=== PATIENT | female | born 1950 | race Caucasian/White ===

== ENCOUNTER → 2018-05-13 07:16 | Outpatient (CLI) | payer OTHER, SELFPAY ==
[2018-05-13 09:05] LABS: White Blood Cell Count 6.4 X10^3/uL (4.5-11.0)
[2018-05-13 09:48] LABS: Alanine Aminotransferase 27 IU/L (9-52); Albumin Globulin Ratio 1.5 (1.0-2.8); Alkaline Phosphatase 66 U/L (38-126); Aspartate Aminotransferase 22 IU/L (14-36); BUN Creatinine Ratio 23.3 (6-22); Bilirubin Total 0.4 mg/dL (0.2-1.3); Bilirubin Unconjugated 0.2 mg/dL (0.0-1.1); Blood Urea Nitrogen 28 mg/dL (7-17); Calcium 9.4 mg/dL (8.4-10.2); Carbon Dioxide 28 mmol/L (22-32); Chloride 97 mmol/L (98-107); Estimated Glomerular Filt Rate 45.1 mL/min (>60); Globulin 2.6 g/dL (1.7-4.1); Glucose 98 mg/dL (80-110); HEMOLYSIS < 15 (0-50); Potassium 4.5 mmol/L (3.4-5.1); Sodium 138 mmol/L (137-145); Total Protein 6.6 g/dL (6.3-8.2)
== END ==
PROVIDERS: PCP Family Medicine; Visit Provider Podiatrist
DX: L60.8 Other nail disorders (principal)
CPT/HCPCS: 36415; 80048; 80076; 85048

== ENCOUNTER → 2018-09-25 10:00 | Outpatient (CLI) | payer OTHER, SELFPAY | PROVIDERS: Family Provider Family Medicine; PCP Family Medicine | DX: Z23 Encounter for immunization (principal) | CPT/HCPCS: 90471; 90662 ==

== ENCOUNTER → 2018-10-15 07:53 | Outpatient (CLI) | payer OTHER, SELFPAY ==
--- NOTE | 2018-10-15 07:56 | DI.RAD.S_ITS ---
PROCEDURE: XR LUMBAR SPINE MIN 4V INDICATIONS: Evaluation TECHNIQUE: 5 views of the lumbar spine were acquired. COMPARISON: [facility], , XR L-SPINE 4-6V, 01/15/2002, 9:22. FINDINGS: Bones: No fracture or focal osseous destruction. Grade 1 anterolisthesis of L4 on L5. Diffuse facet arthropathy. Mild/moderate narrowing of the L4-L5 disc space. Severe narrowing of the L5-S1 disc space. Diffuse facet arthropathy although most prominently at L4-L5 and L5-S1. Soft tissues: Overlying bowel gas pattern is normal. Numerous aortic vascular calcifications. No suspicious soft tissue calcifications. Oblique images: No pars defects. IMPRESSION: L4-L5 L5-S1 disc degeneration and diffuse facet arthropathy. Grade 1 anterolisthesis of L4 on L5. All of these findings appear progressive or new since 01/15/02. Dictated by: Matthieu Mohr M.D. on 10/15/2018 at 10:10 Approved by: Matthieu Mohr M.D. on 10/15/2018 at 10:12
== END ==
PROVIDERS: Family Provider Family Medicine; PCP Family Medicine; Visit Provider Physical Medicine & Rehabilitation
DX: M43.16 Spondylolisthesis, lumbar region (principal); M51.36 Other intervertebral disc degeneration, lumbar region; M51.37 Other intervertebral disc degeneration, lumbosacral region; M47.816 Spondylosis without myelopathy or radiculopathy, lumbar region; M47.817 Spondylosis without myelopathy or radiculopathy, lumbosacral region; M48.061 Spinal stenosis, lumbar region without neurogenic claudication; M48.07 Spinal stenosis, lumbosacral region; M99.89 Other biomechanical lesions of abdomen and other regions
CPT/HCPCS: 72110

== ENCOUNTER 2018-10-16 12:54 | Outpatient (CLI) | payer OTHER, SELFPAY ==
[2018-10-16] VITALS (8 sets, daily range): BP systolic 114–154; BP diastolic 49–74; PULSE 56–67; RESP 16–20; TEMP 36.3; O2SAT 94–96
--- NOTE | 2018-10-16 12:55 | DI.RAD.S_ITS ---
PROCEDURE: PAIN L/S FACET INJ/BLK 1ST REBECA COMPARISON: [facility], XA, PAIN L INTERLAMINAR/CAUDAL INJ, 11/29/2016, 0:00. INDICATIONS: SPONDYLOSIS FINDINGS: Spot fluoroscopic intraoperative views demonstrating placement of spinal needles at the L4-L5 and L5-S1 levels. Appropriate location was confirmed with injection of a small amount of contrast. Dictated by: Matthieu Mohr M.D. on 10/16/2018 at 16:15 Approved by: Matthieu Mohr M.D. on 10/16/2018 at 16:17
[2018-10-16] MEDS: MIDAZOLAM 5 MG/5 ML VIAL IV (14:37)
[2018-10-16] MEDS: BUPIVACAINE 0.5% (PF) VIAL 2 ML INJ (14:47)
[2018-10-16] MEDS: IOPAMIDOL 15 ML VIAL 3 ML INJ (14:47)
[2018-10-16] MEDS: LIDOCAINE 1% 20 ML INJ 10 ML INJ (14:47)
[2018-10-16] MEDS: BETAMETHASONE 30 MG/5 ML MDV 12 MG INJ (14:47)
--- NOTE | 2018-10-16 15:00 | P.PCN_ITS ---
Procedures Date/Time Date of procedure: 10/16/18 Time of procedure: 14:59 General Procedure description: PREOP DIAGNOSIS 1. FACET ARTHROPATHY 2. AXIAL LBP 3. MULTILEVEL DDD POST OP DIAGNOSIS 1. FACET ARTHROPATHY 2. AXIAL LBP 3. MULTILEVEL DDD PROCEDURES 1. FLUORSCOPICALLY GUIDED CONTRAST CONTROLLED FACET JOINT INJECTIONS BILATERAL L4/5, L5/S1 PHYSICIAN: Javier Jj, DO INDICATIONS Dorina is referred by Dr. Tripp for treatment of Axial LBP FINDINGS Multilevel Facet Arthropathy with Clinically significant axial LBP DESCRIPTION OF PROCEDURE Fluoroscopically guided, contrast-controlled bilateral L4/5, L5/S1 facet joint injections. Following denial of allergy and review of potential side effects and complications, including, but not necessarily limited to, infection, allergic reaction, local tissue breakdown, stroke, temporary or permanent nerve injury, paralysis, and possible , the patient indicated that the patient understood and agreed to proceed. An informed consent document was signed by the patient, witnessed by a nurse, and placed in the patient's chart. Additionally, other treatment options including medications, modalities, and physical therapy were reviewed with the patient. After review of previous anaesthesic history and IV conscious sedation the patient was deemed safe to proceed with todays procedure with IV conscious sedation as ASA class II designation. Safety time-out was performed to confirm patient ID, procedure to be performed and site of procedure. IV sedation was accomplished with a combination of 4mg was administered by the RN after DO order , titrated to patient comfort during the course of the procedure while the patient remained responsive to all verbal commands In the prone position, following sterile prep and drape of the lumbar region, the posterior aspect of the L4/5, L5/S1 facet joints were identified fluoroscopically. The skin was anesthetized via a 25-gauge 1.5-inch needle with 1% lidocaine solution into the corresponding facet joints. At this point, a 22-gauge 3.5-inch spinal needle was atraumatically introduced and advanced under fluoroscopic guidance into the corresponding facet joints. Following negative aspiration, injections of approximately 0.2-cc of Isovue 200 confirmed interarticular placement without vascular uptake. The identical procedure was then performed at the L4/5, L5/S1 facet joints on the left. Radiological data, including multiple fluoroscopic views of the lumbosacral spine, reveal a spinal needle at the L4/5, L5/S1 facet joints bilaterally. Subsequent views show flow of contrast material both superiorly and inferiorly within the joint space without vascular or intrathecal uptake. At this point, a total of 0.5 cc including a mixture of 0.25cc Marcaine and 0.25cc betamethasone was injected without complication into each of the corresponding facet joints. The patient tolerated the procedure well without signs or symptoms of complications prior to transfer to the recovery area continued monitoring without incident. The patient was then transferred to the recovery area where they were observed for an appropriate period of time after the injection. The patient reported a VAS score of 7 prior to the procedure and a post- procedure VAS of 0. Total Fluoroscopy Time: 20.3 seconds Total Conscious Sedation Time: 24min POST OP INSTRUCTIONS The patient was provided a Pain Log to continue to record their response to the target-specific procedure prior to follow-up visit with their referring physician. Additionally, specific post-injection care instructions and a contact number to our office were provided if concerns arise regarding possible complications associated with the procedure are suspected. Javier Jj DO Complications: none
--- NOTE | 2018-10-16 15:00 | PC.NURSE ---
pt finished procedure, tolerated well. Able to get up off table with minimal assist. Taken via w/c to pre procedure room where I handed off care to Meka MESSER for continued monitoring.
--- NOTE | 2018-10-16 15:09 | PC.NURSE ---
APPROX 1505 ACCEPTED CARE OF PT IN POST PROC AREA. PT POLLY, A&OX4, VSS.
== END 2018-10-16 15:33 | disposition home or self-care (01) ==
PROVIDERS: Family Provider Family Medicine; PCP Family Medicine; Visit Provider Physical Medicine & Rehabilitation
DX: M47.817 Spondylosis without myelopathy or radiculopathy, lumbosacral region (principal); M47.816 Spondylosis without myelopathy or radiculopathy, lumbar region; M51.37 Other intervertebral disc degeneration, lumbosacral region; M54.5 Low back pain; M43.16 Spondylolisthesis, lumbar region; M51.9 Unspecified thoracic, thoracolumbar and lumbosacral intervertebral disc disorder; M99.89 Other biomechanical lesions of abdomen and other regions
CPT/HCPCS: 64493; 64494; 99152; J0702; J2250

== ENCOUNTER 2019-01-15 06:59 | Day surgery (SDC) | payer OTHER, SELFPAY ==
--- NOTE | 2019-01-11 12:12 | PM.PREOP ---
Pre-operative Note Interval Note History & Physical reviewed/Exam performed by Physician: Yes Changes to H&P: No
--- NOTE | 2019-01-11 12:12 | PM.OP.1 ---
Operative Date/Time/Diagnoses Date of procedure: 01/15/19 Time of procedure: 07:45 Procedure & Clinicians Procedure: Right cataract Preoperative diagnoses: 1. Right nuclear sclerotic and cortical cataract. 2. Diabetes without retinopathy. 3. Asthma. 4. GERD Postoperative diagnoses: 1. Cataract removed by phacoemulsification with placement of posterior chamber intraocular lens. Procedure: Phacoemulsification with posterior chamber intraocular lens implant Surgeon: Elizabeth Lozano MD Complications: None Specimen: None Implant: [id number]+17.5 Blood loss: None Anesthesia: Retrobulbar with monitored standby Description of procedure: Patient presents with a complaint of decreased vision due to cataract which is affecting activities of daily living. The patient wants surgery to improve vision. Fasting glucose is stable prior to the procedure at 133. The patient was taken to the operating room and given IV sedation. A retrobulbar block insert consisting of 6 cc of 2% xylocaine without epinephrine mixed half and half with 0.5% Marcaine with 1 cc of hyaluronidase added is placed between the medial and lateral 1/3 of the inferior orbital rim. Lid akinesia is obtain with 1% xylocaine with epinephrine infiltrated along the lid margin. The eye is manually massaged for 30 sec, prepped using Betadine solution, and draped in the usual sterile fashion. Temporal approach was made, a 1 mm side-port incision was made 90? from the proposed clear corneal incision position. Phenylephrine 1.5% mixed with 1% xylocaine 0.2 cc was placed into the anterior chamber. Viscoat followed by Healon was then placed. A 2.6 mm clear incision with a 2.6 mm blade was placed. A 360 degree capsulorrhexis style capsulotomy was then performed with a cystitome needle on a Healon. Hydrodelineation and hydrodissection were performed. The phacoemulsification unit is introduced, and sculpting notice used to groove the central lens. It is then removed in chopping mode. Epi nucleus is removed with epinuclear mode and irrigation aspiration was used to remove the peripheral cortex. The posterior capsule is polished. The intraocular lens is selected, inspected, power confirmed, and placed in the posterior chamber. The pupil was constricted with Miostat.. The wound was stromally hydrated and tested for leaks, there was none and it was left sutureless. Vigamox 0.1 cc was placed into the anterior chamber. Kenalog 0.2 cc was placed in the superior subconjunctival space. A drop of antibiotic and was placed and the eye was patched and shielded. The patient was stable and returned to the recovery room in excellent condition. Dictated by: Elizabeth Lozano MD Copy to: [facility]
[2019-01-15 07:17] VITALS: BP 125/55; PULSE 62; RESP 16; TEMP 36.1; O2SAT 93; BMI 31.9
[2019-01-15] MEDS: PROPARACAINE 0.5% OPHTH SOL 2 DROPS EYE-OP (07:18)
[2019-01-15] MEDS: CATARACT EYE COMPOUND (10 DROPS/SYRINGE) 3 DROPS EYE-OP (07:37)
--- NOTE | 2019-01-15 08:10 | SUR.OPER ---
Case delay; pre op drops were not available from the pharmacy.
[2019-01-15] MEDS: CARBACHOL 1.5 ML VIAL INJ (08:15)
[2019-01-15] MEDS: LIDOCAINE 1% W/EPI INJ 20 ML INJ (08:15)
[2019-01-15] MEDS: CHONDROIDTIN/SOD HYALURONATE 1.05 ML SYRINGE INTRAOCULA (08:15)
[2019-01-15] MEDS: BALANCED SALT IRRIG SOLN NO.2 15 ML IRR (08:15)
[2019-01-15] MEDS: HYALURONATE SODIUM 10 MG/ML SYRINGE INJ (08:15)
[2019-01-15] MEDS: NEOMYCIN/POLY/DEX OPHTH OINT 1 APPLIC EYE-RIGHT (08:16)
[2019-01-15] MEDS: MOXIFLOXACIN OPHTH DROPS 3 ML BOTTLE 2 DROPS INJ (08:16)
[2019-01-15] MEDS: PHENYLEPHRINE/LIDOCAINE VIAL (OR) 0.2 ML EYE-OP (08:17)
[2019-01-15] MEDS: OFLOXACIN 0.3% OPHTH 5 ML 2 DROPS EYE-RIGHT (08:17)
[2019-01-15] MEDS: BALANCED SALT IRRIG SOLN NO.2 500 ML, EPINEPHrine 1 MG IRR (08:18)
[2019-01-15] MEDS: TRIAMCINOLONE 50 MG/5 ML VIAL INJ (08:18)
[2019-01-15] MEDS: LIDOCAINE 2% 4 ML, BUPIVACAINE 0.5% (PF) 4 ML, HYALURONIDASE 150 UNIT INJ (08:19)
[2019-01-15 08:39] VITALS: BP 120/62; PULSE 53; RESP 16; TEMP 36.3; O2SAT 99
[2019-01-15 08:50] VITALS: BP 119/66; PULSE 55; RESP 18; O2SAT 98
== END 2019-01-15 08:55 | disposition home or self-care (01) ==
LOC: OR 06:59
PROVIDERS: Family Provider Family Medicine; PCP Family Medicine; Visit Provider Ophthalmology
DX: H25.811 Combined forms of age-related cataract, right eye (principal); E11.9 Type 2 diabetes mellitus without complications; J45.909 Unspecified asthma, uncomplicated
CPT/HCPCS: J0171; J2250; J2704; J3301; J3470

== ENCOUNTER → 2019-05-23 11:41 | Outpatient (CLI) | payer OTHER, SELFPAY ==
--- NOTE | 2019-05-23 | DI.MG.S_ITS ---
BILATERAL DIGITAL SCREENING MAMMOGRAM 3D/2D WITH CAD: 05/23/2019 CLINICAL: Routine screening. Comparison is made to exams dated: 02/08/2018 mammogram, 01/19/2017 mammogram, and 08/28/2013 mammogram - [facility]. There are scattered fibroglandular elements in both breasts. Current study was also evaluated with a Computer Aided Detection (CAD) system. No significant masses, calcifications, or other findings are seen in either breast. There has been no significant interval change. IMPRESSION: NEGATIVE There is no mammographic evidence of malignancy. A 1 year screening mammogram is recommended. This exam was interpreted at Station ID: [id number]. NOTE: For mammograms, a report in lay terms will be sent to the patient. Approximately 15% of breast malignancies will not be visualized mammographically. In the management of a palpable breast mass, a negative mammogram must not discourage biopsy of a clinically suspicious lesion. Electronically Signed By: Cathy garvin/gerard:05/23/2019 15:43:01 letter sent: Normal Exam ACR BI-RADS Category 1: Negative [id number]
== END ==
PROVIDERS: PCP Family Medicine; Visit Provider Family Medicine
DX: Z12.31 Encounter for screening mammogram for malignant neoplasm of breast (principal)
CPT/HCPCS: 77063; 77067

== ENCOUNTER → 2019-06-02 06:50 | Outpatient (CLI) | payer OTHER, SELFPAY ==
--- NOTE | 2019-06-02 06:53 | DI.MRI.S_ITS ---
PROCEDURE: MR LUMBAR SPINE WO CON INDICATIONS: Lumbosacral spondylosis TECHNIQUE: Noncontrast sagittal T1 spin echo and T2 fast echo, sagittal STIR, axial T1 and T2 fast spin echo through the lumbar spine. In cases with scoliosis, additional coronal T2 fast spin echo may be performed. COMPARISON: [facility], CR, XR LUMBAR SPINE MIN 4V, 10/15/2018, 8:10. [facility], MR, L-SPINE WITHOUT CONTRAST, 08/29/2016, 8:38. FINDINGS: Image quality: Excellent. Alignment and Curvature: Minimal chronic anterolisthesis of L4 on L5 measuring 6 mm, degenerative in nature secondary to facet arthropathy. There is otherwise normal bony alignment. Bone Marrow: Marrow is of normal overall signal. No acute vertebral body compression fractures. Spinal Cord: Conus medullaris terminates at the L1 level. Visualized cord demonstrates normal signal and size. Paraspinous Soft Tissues: No paravertebral masses. T12-L1: No canal stenosis or foraminal stenosis. L1-L2: No canal stenosis or foraminal stenosis. Mild facet hypertrophy. L2-L3: No canal stenosis or foraminal stenosis. Mild facet hypertrophy. L3-L4: Unchanged findings. Diffuse disc bulge. Prominent facet and ligament hypertrophy. Unchanged moderate canal stenosis. Unchanged moderate bilateral foraminal narrowing, mildly impressing on the L3 nerve root sleeves in the foramina. L4-L5: Unchanged findings. The combination of anterolisthesis of L4 on L5, which on roots the disc, and prominent facet and ligament hypertrophy results in moderate central canal stenosis. There is moderate bilateral foraminal narrowing, indenting the bilateral L4 nerve root sleeves. L5-S1: Unchanged findings. Severe disc height loss. No significant canal stenosis. Facet and ligament hypertrophy resulting in mild to moderate bilateral foraminal bearing. IMPRESSION: 1. Stable findings. 2. Prominent facet ligament hypertrophy at L3-L4 and L4-L5. 3. Stable moderate canal stenosis at L3-L4 and L4-L5. 4. Multilevel foraminal narrowing as described above. Dictated by: Mike Lewis M.D. on 06/02/2019 at 8:58 Approved by: Mike Lewis M.D. on 06/02/2019 at 9:14
== END ==
PROVIDERS: PCP Family Medicine; Visit Provider Physical Medicine & Rehabilitation
DX: M47.817 Spondylosis without myelopathy or radiculopathy, lumbosacral region (principal); M48.061 Spinal stenosis, lumbar region without neurogenic claudication
CPT/HCPCS: 72148

== ENCOUNTER 2019-07-03 08:27 | Outpatient (CLI) | payer OTHER, SELFPAY ==
[2019-07-03] VITALS (8 sets, daily range): BP systolic 88–136; BP diastolic 49–71; PULSE 60–66; RESP 12–16; TEMP 36.4; O2SAT 93–99
--- NOTE | 2019-07-03 08:30 | DI.RAD.S_ITS ---
PROCEDURE: PAIN L/S FACET INJ/BLK 1ST REBECA COMPARISON: [facility], , PAIN L/S FACET INJ/BLK 1ST REBECA, 10/16/2018, 15:45. INDICATIONS: SPONDYLOSIS FINDINGS: Fluoroscopic spot filming was performed to verify placement of spinal needles at the L3, L4, L5 level(s), as labeled on the films. Appropriate location(s) of the needle tip(s) was confirmed by injection of iodinated contrast. Dictated by: Matthieu Mohr M.D. on 07/03/2019 at 10:46 Approved by: Matthieu Mohr M.D. on 07/03/2019 at 10:46
[2019-07-03] MEDS: fentaNYL 100 MCG/2 ML INJ 50 MCG IV (09:47)
[2019-07-03] MEDS: MIDAZOLAM 5 MG/5 ML VIAL IV (09:47)
[2019-07-03] MEDS: LIDOCAINE 1% 20 ML INJ 10 ML INJ (09:50)
[2019-07-03] MEDS: IOPAMIDOL 15 ML VIAL 3 ML INJ (09:50)
[2019-07-03] MEDS: BETAMETHASONE 30 MG/5 ML MDV 12 MG INJ (09:50)
[2019-07-03] MEDS: BUPIVACAINE 0.5% (PF) VIAL 5 ML INJ (09:50)
--- NOTE | 2019-07-03 10:02 | PC.NURSE ---
Pt tolerated procedure well. Able to get off the table with standby assist. Transferred pt via wheelchair to pre procedure room for continued monitoring with Meka MESSER.
--- NOTE | 2019-07-03 10:10 | P.PCN_ITS ---
Procedures Date/Time Date of procedure: 07/03/19 Time of procedure: 10:08 General Procedure description: POST OP DIAGNOSIS 1. FACET ARTHROPATHY PROCEDURES 1. BILATERAL L3, L4 AND L5 MB BLOCKS PHYSICIAN: DO CECILIA Weinstein Dorina is referred by Dr. Tripp for treatment of Bilateral Axial LBP. DESCRIPTION OF PROCEDURE Fluoroscopically guided, contrast-controlled bilateral L3, L4 and L5 medial branch blocks with 0.5cc of 0.5% Marcaine. Following review of allergy and review of potential side effects and complications, including, but not necessarily limited to, infection, allergic reaction, local tissue breakdown, nerve injury, paralysis, stroke and possible , the patient indicated that the patient understood and agreed to proceed. An informed consent document was signed by the patient, witnessed by a nurse, and placed in the patient's chart. After review of previous anaesthesic history and IV conscious sedation the patient was deemed safe to proceed with todays procedure with IV conscious sedation as ASA class II designation. Safety time-out was performed to confirm patient ID, procedure to be performed and site of procedure. IV sedation was accomplished with a combination of 3mg of Versed and 50mcg of Fentanyl was administered by the RN after DO order, titrated to patient comfort during the course of the procedure while the patient remained responsive to all verbal commands In the prone position, following sterile prep and drape of the lumbar region, the right L3, L4 and L5 anatomical location of the medial branch of the dorsal ramus was identified fluoroscopically. Subsequently an anesthetic skin wheal using 1% lidocaine solution was initiated at each of the anatomical spots. Subsequently then a 22-gauge 3.5-inch spinal needle was atraumatically introduced and advanced under fluoroscopic guidance at each of the corresponding sites at the right L3, L4 AND L5 MB. After negative aspiration, 0.2 cc of Isovue 200 was injected, confirming placement without vascular or intrathecal uptake. Subsequently then 0.5 cc of 0.5% Marcaine solution was injected at each of the corresponding sites at the Right L3, L4 and L5 medial branch locations. The identical procedure was replicated on the left. The patient tolerated the procedure well without signs or symptoms of complications. The patient tolerated the procedure well without signs or symptoms of complications prior to transfer to the recovery area continued monitoring without incident. Post-procedure, the patient was monitored initiating provocative activities to measure the amount of relief from block of the facetogenic pain. The patient reported a VAS of 7 prior to the procedure and a post-procedure VAS of 1. It has been a pleasure to assist in the diagnostic and therapeutic care of your patient. Total Fluoroscopy Time: 24.8 seconds Total Conscious Sedation Time: 24min POST OP INSTRUCTIONS The patient was provided with a Pain Log to complete over the next several hours and subsequent days prior to the patient's follow up with the ordering physician. If the patient has wine master relief to the solution applied, then they may be a candidate for medial branch rhizotomy. The patient is aware, was provided, once again, with a Pain Log and will follow up with the referring physician for review and clinical correlation Javier Jj DO Complications: none
--- NOTE | 2019-07-03 10:16 | PC.NURSE ---
ACCEPTED CARE OF PT IN POST PROC AREA. PT IN STABLE CONDITION
== END 2019-07-03 10:28 | disposition home or self-care (01) ==
PROVIDERS: PCP Family Medicine; Visit Provider Physical Medicine & Rehabilitation
DX: M47.817 Spondylosis without myelopathy or radiculopathy, lumbosacral region (principal); M43.16 Spondylolisthesis, lumbar region
CPT/HCPCS: 64493; 64494; 99152; J0702; J2250; J3010

== ENCOUNTER → 2019-09-29 16:31 | Outpatient (CLI) | payer OTHER, SELFPAY | PROVIDERS: PCP Family Medicine | DX: Z23 Encounter for immunization (principal) | CPT/HCPCS: 90471; 90662 ==

== ENCOUNTER 2019-10-14 09:31 | Outpatient (CLI) | payer OTHER, SELFPAY ==
[2019-10-14] VITALS (10 sets, daily range): BP systolic 98–130; BP diastolic 45–70; PULSE 59–68; RESP 16–18; TEMP 36.1; O2SAT 93–98
--- NOTE | 2019-10-14 09:32 | DI.RAD.S_ITS ---
PROCEDURE: PAIN L/S TRANSFORAM INJECT REBECA COMPARISON: None. INDICATIONS: Bilateral L4 and L5 MBB with 2% Lidocaine Fluoroscopic spot filming was performed to verify placement of spinal needles at the L4 and L5 level(s), as labeled on the films. Appropriate location(s) of the needle tip(s) was confirmed by injection of iodinated contrast. Dictated by: Matthieu Mohr M.D. on 10/14/2019 at 12:31 Approved by: Matthieu Mohr M.D. on 10/14/2019 at 12:32
[2019-10-14] MEDS: MIDAZOLAM 5 MG/5 ML VIAL IV (10:47)
[2019-10-14] MEDS: fentaNYL 100 MCG/2 ML INJ 50 MCG IV (10:48)
--- NOTE | 2019-10-14 10:53 | PC.NURSE ---
MD NOTIFIED OF LOW BP, NO NEW ORDERS. PT A&OX4 AND EASILY RESPONSIVE.
[2019-10-14] MEDS: LIDOCAINE 2% INJ SDV 1 ML INJ (10:56)
[2019-10-14] MEDS: LIDOCAINE 1% 20 ML 10 ML INJ (10:56)
[2019-10-14] MEDS: IOPAMIDOL 15 ML VIAL 3 ML INJ (10:57)
--- NOTE | 2019-10-14 10:59 | PC.NURSE ---
ASSISTING PT OFF TABLE AND TRANSPORTING TO POST PROC AREA IN STABLE CONDITION.
--- NOTE | 2019-10-14 11:10 | P.PCN_ITS ---
Procedures Date/Time Date of procedure: 10/14/19 Time of procedure: 11:10 General Procedure description: POST OP DIAGNOSIS 1. FACET ARTHROPATHY PROCEDURES 1. BILATERAL L3, L4 AND L5 MB BLOCKS PHYSICIAN: DO CECILIA Weinstein Dornia is referred by Dr. Tripp for treatment of Bilateral Axial LBP. DESCRIPTION OF PROCEDURE Fluoroscopically guided, contrast-controlled bilateral L4 and L5 medial branch blocks with 0.5cc of 2% Lidocaine Following review of allergy and review of potential side effects and complications, including, but not necessarily limited to, infection, allergic reaction, local tissue breakdown, nerve injury, paralysis, stroke and possible , the patient indicated that the patient understood and agreed to proceed. An informed consent document was signed by the patient, witnessed by a nurse, a nd placed in the patient's chart. After review of previous anaesthesic history and IV conscious sedation the patient was deemed safe to proceed with todays procedure with IV conscious sedation as ASA class II designation. Safety time-out was performed to confirm patient ID, procedure to be performed and site of procedure. IV sedation was accomplished with a combination of 2mg of Versed and 50mcg of Fentantyl was administered by the RN after DO order, titrated to patient comfort during the course of the procedure while the patient remained responsive to all verbal commands In the prone position, following sterile prep and drape of the lumbar region, the right L4 AND L5 anatomical location of the medial branch of the dorsal ramus was identified fluoroscopically. Subsequently an anesthetic skin wheal using 1% lidocaine solution was initiated at each of the anatomical spots. Subsequently then a 22-gauge 3.5-inch spinal needle was atraumatically introduced and advanced under fluoroscopic guidance at each of the corresponding sites at the right L4 AND L5 MB. After negative aspiration, 0.2cc of Isovue 200 was injected, confirming placement without vascular or intrathecal uptake. Franco bsequently then 0.5 cc of 2% lidocaine solution was injected at each of the corresponding sites at the right L4 AND L5 medial branch locations. The identical procedure was replicated on the left. The patient tolerated the procedure well without signs or symptoms of complications. The patient tolerated the procedure well without signs or symptoms of complications prior to transfer to the recovery area continued monitoring without incident. Post-procedure, the patient was monitored initiating provocative activities to measure the amount of relief from block of the facetogenic pain. The patient reported a VAS of 7 prior to the procedure and a post-procedure VAS of 1. It has been a pleasure to assist in the diagnostic and therapeutic care of your patient. Total Fluoroscopy Time: 24.8 seconds Total Conscious Sedation Time: 24min POST OP INSTRUCTIONS The patient was provided with a Pain Log to complete over the next several hours and subsequent days prior to the patient's follow up with the ordering physician. If the patient has fire battalion chief relief to the solution applied, then they may be a candidate for medial branch rhizotomy. The patient is aware, was provided, once again, with a Pain Log and will follow up with the referring physician for review and clinical correlation Javier Jj DO Complications: none
--- NOTE | 2019-10-14 17:12 | PC.NURSE ---
Post procedure note: (Late entry) Patient arrived at 1108 for post procedure monitoring. Hand off report received from Chelita Cedillo RN. VSS and O2 Sat stable on arrival. No complaints of pain. 0/10 pain level to back. at 1115, Patient stated that she was feeling mild chest discomfort 4/10 non radiating and had been experiencing symptoms on and off for a week. Patient stated that her has been hospitalized recently and is worried about him. Dr. Jj informed and assessed patient. O2 2 L/SAWYER HELPER was placed. Chest discomfort resolved without medication or treatment other than Oxygen. No EKG was ordered. Dr. Jj recommended to the patient to follow up with her PCP or go to the ED if symptoms persist after discharge. VSS and O2 SAT WNL on RA at time if discharge without chest discomfort. Back pain level 0/10. Patient discharged and ambulated to the cafeteria to wait for her friend to take her home.
== END 2019-10-14 11:50 | disposition home or self-care (01) ==
LOC: RAD 09:32
PROVIDERS: PCP Family Medicine; Visit Provider Physical Medicine & Rehabilitation
DX: M47.816 Spondylosis without myelopathy or radiculopathy, lumbar region (principal); M54.5 Low back pain
CPT/HCPCS: 64483; 64484; 72020; 99152; J2250; J3010

== ENCOUNTER 2019-10-14 17:28 | Emergency (ER) | payer OTHER, SELFPAY ==
[2019-10-14] VITALS (8 sets, daily range): BP systolic 102–190; BP diastolic 48–95; PULSE 61–68; RESP 14–19; TEMP 36.5; O2SAT 94–97; BMI 30.4
--- NOTE | 2019-10-14 17:42 | DI.RAD.S_ITS ---
PROCEDURE: XR CHEST 1V INDICATIONS: chest pain TECHNIQUE: One view of the chest was acquired. COMPARISON: [facility], , CHEST 2 VIEW, 10/26/2017, 8:30. FINDINGS: Surgical changes and devices: None. Lungs and pleura: Lungs are clear. No pleural effusions or pneumothorax. Mediastinum: Mediastinal contours appear normal. Heart size is normal. Bones and chest wall: No suspicious bony lesions. Overlying soft tissues appear unremarkable. IMPRESSION: No acute pulmonary process. Dictated by: Sherita Allan M.D. on 10/14/2019 at 18:09 Approved by: Sherita Allan M.D. on 10/14/2019 at 18:09
--- NOTE | 2019-10-14 17:51 | PC.NURSE ---
pt c/o chest pain that wakes her up during the night, states she sits up and rubs her chest, pain eventually subsides. pt states pain started about a week ago but was only at night, yesterday had pain during the day and today had pain again during the day and pain went into neck. pt was seen by dr de guzman today for spinal injection, at that time had ekg done, without significant findings.
[2019-10-14 17:55] LABS: Add Manual Diff / Slide Review NO; Basophils Absolute Auto 100 /uL (0-100); Basophils Percent Auto 1.1 % (0-2); Eosinophils Absolute Auto 300 /uL (0-450); Eosinophils Percent Auto 3.7 % (2-4); Hematocrit 38.2 % (36-46); Hemoglobin 12.9 g/dL (12.0-16.0); Lymphocytes Absolute Auto 2500 /uL (1100-4500); Lymphocytes Percent Auto 32.1 % (25-40); Mean Corpuscular HGB Conc 33.8 % (30-36); Mean Corpuscular Hemoglobin 32.1 PG (26-34); Mean Corpuscular Volume 94.9 fL (80-100); Monocytes Absolute Auto 700 /uL (0-900); Monocytes Percent Auto 8.6 % (3-14); Neutrophils Absolute Auto 4200 /uL (1500-7000); Neutrophils Percent Auto 54.5 % (50-75); Platelet Count 317 X10^3/uL (150-400); Red Blood Cell Count 4.02 X10^6/uL (4.0-5.2); Red Cell Distribution Width 13.4 % (11.6-14.8); White Blood Cell Count 7.8 X10^3/uL (4.5-11.0)
[2019-10-14 17:57] LABS: INR 0.9 (0.9-1.3); Prothrombin Time 10.6 SECONDS (10.1-12.7)
[2019-10-14] MEDS: ASPIRIN 81 MG CHEW TAB 324 MG PO (17:57)
[2019-10-14 18:00] LABS: PTT Partial Thromboplastin Tim 34 SECONDS (26.4-36.2)
[2019-10-14 18:01] LABS: Alanine Aminotransferase 15 IU/L (<35); Albumin 4.5 g/dL (3.5-5.0); Albumin Globulin Ratio 1.6 (1.0-2.8); Alkaline Phosphatase 87 U/L (38-126); Aspartate Aminotransferase 32 IU/L (14-36); BUN Creatinine Ratio 21.5 (6-22); Bilirubin Total 0.5 mg/dL (0.2-1.3); Blood Urea Nitrogen 28 mg/dL (7-17); Calcium 9.9 mg/dL (8.4-10.2); Carbon Dioxide 31 mmol/L (22-32); Chloride 96 mmol/L (98-107); Creatine Kinase 150 U/L (30-135); Estimated Glomerular Filt Rate 40.9 mL/min (>60); Globulin 2.9 g/dL (1.7-4.1); Glucose 134 mg/dL (80-110); HEMOLYSIS 24 (0-50); Lipase 101 U/L (23-300); Potassium 3.4 mmol/L (3.4-5.1); Sodium 136 mmol/L (137-145); Total Protein 7.4 g/dL (6.3-8.2)
[2019-10-14 18:16] LABS: CKMB % Relative Index 2.5 % (1.5-5.0); Creatine Kinase MB 3.74 ng/mL (<2.37)
--- NOTE | 2019-10-14 18:23 | ED.CHESTPAIN ---
HPI - Chest Pain <Deyanira Roche, DO - Last Filed: 10/14/19 19:33> General Chief Complaint: Chest Pain Stated Complaint: chest pain Time Seen by Provider: 10/14/19 17:31 Source: patient Mode of arrival: Ambulatory History of Present Illness HPI narrative: The patient is a 69-year-old female with history of hypertension diabetes who presents with chest discomfort ongoing for about 1 week. She typically notices it at night time seems to wake her up at night. Last night it woke her up she took Maalox which did not seem to really help. Today she noticed it while driving it is nonradiating, she denies any shortness of breath with exertion. She says she had another episode this afternoon that radiated up to her jaw so she came to the emergency department for further evaluation. MD complaint: chest pain Duration: now resolved Onset: during rest Pain location: substernal Quality: aching Relieving factors: nothing Related Data Home Medications Medication Instructions Recorded Confirmed cinnamon bark 500 mg capsule 500 mg PO DAILY cap 08/12/18 10/14/19 magnesium oxide 400 mg (241.3 mg 400 mg PO DAILY tab 08/12/18 10/14/19 magnesium) tablet Ca [id number] thistle 1 cap PO DAILY cap 04/17/19 10/14/19 chlorthalidone 25 mg PO DAILY 10/14/19 10/14/19 metformin 1,000 mg PO BID 10/14/19 10/14/19 omeprazole 20 mg PO DAILY 10/14/19 10/14/19 sertraline [Zoloft] 50 mg PO DAILY 10/14/19 10/14/19 Previous Rx's Medication Instructions Recorded Test Strips - Freestyle 0 item SEE INSTRUCTIONS #2 07/20/17 losartan 50 mg tablet 50 mg PO BID #60 tab 10/14/18 metoprolol succinate 50 mg 50 mg PO BID #180 tab 02/25/19 tablet,extended release 24 hr nifedipine 10 mg capsule 10 mg PO DAILY #30 cap 07/10/19 glipizide 5 mg tablet, extended 5 mg PO DAILY #90 tab 08/18/19 release 24 hr gabapentin 600 mg tablet 600 mg PO TID #90 tab 09/15/19 Allergies Allergy/AdvReac Type Severity Reaction Status Date / Time hexachlorophene Allergy Mild SWELLING Verified 10/14/19 17:40 [HEXACHLOROPHENE] AT SITE codeine [CODEINE] AdvReac Mild N/V Verified 10/14/19 17:40 hydrochlorothiazide AdvReac Mild CRAMPS Verified 10/14/19 17:40 [HYDROCHLOROTHIAZIDE] Review of Systems <Deyanira Roche DO - Last Filed: 10/14/19 19:33> Review of Systems Narrative: GENERAL: Denies chills, fatigue, malaise, fever, sweats, travel HEENT: Denies sinus pain, ear pain, sore throat, difficulty swallowing, neck pain RESPIRATORY: Denies dyspnea, cough, wheezing, hemoptysis, sputum. CARDIOVASCULAR: See HPI GASTROINTESTINAL: Denies nausea, vomiting, abdominal pain, diarrhea, constipation, melena. : Denies dysuria, frequency, incontinence, hematuria, urinary retention, flank pain. MUSCULOSKELETAL: Denies weakness, joint pain, or bony pain SKIN: No rash, no erythema, no pruritus NEUROLOGIC: Denies weakness, dizziness, headache, numbness, change in speech, confusion PSYCHIATRIC: No concerning psychosocial issues. 12 point review of systems is negative except for those stated above and HPI Patient History <Deyanira Roche DO - Last Filed: 10/14/19 19:33> Family History Father Stroke Mother Lung cancer Social History marital status: household members: spouse Smoking Status: Never smoker alcohol intake: current substance use type: does not use Exam <DO Sabrina Gibson Last Filed: 10/14/19 19:33> Initial Vital Signs Initial Vital Signs: Vital Signs Temperature 97.7 F 10/14/19 17:40 Pulse Rate 68 10/14/19 17:40 Respiratory Rate 16 10/14/19 17:40 Blood Pressure 165/95 H 10/14/19 17:40 Pulse Oximetry 96 10/14/19 17:40 GENERAL: Well-appearing, well-nourished and in no acute distress. HEENT: Head atraumatic,EOMI, pupils reactive, face symmetric, moist mucous membranes CARDIOVASCULAR: Regular rate and rhythm without murmurs, rubs or gallops. RESPIRATORY: Breath sounds equal bilaterally, no wheezes rales or rhonchi. ABDOMEN: Soft, nontender. Normoactive bowel sounds all 4 quadrants. No guarding or rebound. : No CVA tenderness EXTREMITIES: Normal range of motion, no clubbing or edema. Neurovascularly intact NEUROLOGICAL: Alert and oriented x4.Normal gait and speech. SKIN: Warm, dry, no laceration, no petechiae, no rashes or lesions. <Lacie Diamond DO - Last Filed: 10/15/19 04:24> Initial Vital Signs Initial Vital Signs: Vital Signs Temperature 97.7 F 10/14/19 17:40 Pulse Rate 68 10/14/19 17:40 Respiratory Rate 16 10/14/19 17:40 Blood Pressure 165/95 H 10/14/19 17:40 Pulse Oximetry 96 10/14/19 17:40 Course <Deyanira Roche DO - Last Filed: 10/14/19 19:33> Orders Ordered: Discontinued Medications Aspirin (Aspirin Chew) 324 mg PO NOW ONE Stop: 10/14/19 17:54 Last Admin: 10/14/19 17:57 Dose: 324 mg Documented by: SCANAPO Heparin Sodium (Porcine) (Heparin) 5,000 unit IV NOW ONE Stop: 10/14/19 18:42 Last Admin: 10/14/19 18:49 Dose: 5,000 unit Documented by: SCANAPO Heparin Sodium/Dextrose (Heparin Drip) 25,000 unit in 500 mls @ 20 mls/hr IV CONT EMILIA; Protocol Last Titration: 10/14/19 20:30 Dose: 1,000 units/hr, 20 mls/hr Documented by: Admin: 10/14/19 18:49 Dose: 1,000 units/hr, 20 mls/hr Documented by: SCANAPO Nitroglycerin (Nitrostat) 0.4 mg SL NOW ONE Stop: 10/14/19 17:54 Last Admin: 10/14/19 17:58 Dose: Not Given Documented by: SCANAPO Consultations Consultation #1: Dr. Patel, hospitalist at [facility] has been updated patient's symptoms test results agrees with transfer. Vital Signs Vital signs: Vital Signs - 8 hr 10/14/19 20:20 Pulse Rate 65 Respiratory Rate 19 Blood Pressure [Right Arm] 102/48 L Pulse Oximetry 94 <Lacie Diamond DO - Last Filed: 10/15/19 04:24> Orders Ordered: Discontinued Medications Aspirin (Aspirin Chew) 324 mg PO NOW ONE Stop: 10/14/19 17:54 Last Admin: 10/14/19 17:57 Dose: 324 mg Documented by: ALVARO Heparin Sodium (Porcine) (Heparin) 5,000 unit IV NOW ONE Stop: 10/14/19 18:42 Last Admin: 10/14/19 18:49 Dose: 5,000 unit Documented by: ALVARO Heparin Sodium/Dextrose (Heparin Drip) 25,000 unit in 500 mls @ 20 mls/hr IV CONT EMILIA; Protocol Last Titration: 10/14/19 20:30 Dose: 1,000 units/hr, 20 mls/hr Documented by: Admin: 10/14/19 18:49 Dose: 1,000 units/hr, 20 mls/hr Documented by: ALVARO Nitroglycerin (Nitrostat) 0.4 mg SL NOW ONE Stop: 10/14/19 17:54 Last Admin: 10/14/19 17:58 Dose: Not Given Documented by: ALVARO Vital Signs Vital signs: Vital Signs - 8 hr 10/14/19 20:20 Pulse Rate 65 Respiratory Rate 19 Blood Pressure [Right Arm] 102/48 L Pulse Oximetry 94 MDM - Chest Pain <Deyanira Roche, DO - Last Filed: 10/14/19 19:33> Lab Data Attestation: I reviewed the patient's lab results. Result diagrams: 10/14/19 17:38 10/14/19 17:38 Labs: Lab Results 10/14/19 10/14/19 10/14/19 Range/Units 17:38 17:38 17:38 WBC 7.8 (4.5-11.0) X10^3/uL RBC 4.02 (4.0-5.2) X10^6/uL Hgb 12.9 (12.0-16.0) g/dL Hct 38.2 (36-46) % MCV 94.9 (80-100) fL MCH 32.1 (26-34) PG MCHC 33.8 (30-36) % RDW 13.4 (11.6-14.8) % Plt Count 317 (150-400) X10^3/uL Neut % (Auto) 54.5 (50-75) % Lymph % (Auto) 32.1 (25-40) % White % (Auto) 8.6 (3-14) % Eos % (Auto) 3.7 (2-4) % Baso % (Auto) 1.1 (0-2) % Neut # (Auto) 4200 (7836-2631) /uL Lymph # (Auto) 2500 (8492-6164) /uL White # (Auto) 700 (0-900) /uL Eos # (Auto) 300 (0-450) /uL Baso # (Auto) 100 (0-100) /uL PT 10.6 (10.1-12.7) SECONDS INR 0.9 (0.9-1.3) APTT 34 (26.4-36.2) SECONDS Sodium 136 L (137-145) mmol/L Potassium 3.4 (3.4-5.1) mmol/L Chloride 96 L (98-107) mmol/L Carbon Dioxide 31 (22-32) mmol/L BUN 28 H (7-17) mg/dL Creatinine 1.30 H (0.52-1.04) mg/dL Estimated GFR 40.9 L (>60) mL/min BUN/Creatinine Ratio 21.5 (6-22) Glucose 134 H (80-110) mg/dL Calcium 9.9 (8.4-10.2) mg/dL Total Bilirubin 0.5 (0.2-1.3) mg/dL AST 32 (14-36) IU/L ALT 15 (<35) IU/L Alkaline Phosphatase 87 (38-126) U/L Total Creatine Kinase 150 H (30-135) U/L CK-MB (CK-2) 3.74 H (<2.37) ng/mL CK-MB (CK-2) Rel Index 2.5 (1.5-5.0) % Troponin I 1.360 H* (0.01-0.034) ng/mL Total Protein 7.4 (6.3-8.2) g/dL Albumin 4.5 (3.5-5.0) g/dL Globulin 2.9 (1.7-4.1) g/dL Albumin/Globulin Ratio 1.6 (1.0-2.8) Lipase 101 (23-300) U/L Imaging Data Chest x-ray: Radiologist's impression: PROCEDURE: XR CHEST 1V INDICATIONS: chest pain TECHNIQUE: One view of the chest was acquired. COMPARISON: [facility], , CHEST 2 VIEW, 10/26/2017, 8:30. FINDINGS: Surgical changes and devices: None. Lungs and pleura: Lungs are clear. No pleural effusions or pneumothorax. Mediastinum: Mediastinal contours appear normal. Heart size is normal. Bones and chest wall: No suspicious bony lesions. Overlying soft tissues appear unremarkable. IMPRESSION: No acute pulmonary process. Dictated by: Sherita Allan M.D. on 10/14/2019 at 18:09 ECG Data Attestation: I personally reviewed and interpreted this ECG as follows: Prior ECG tracings: available for review Interpretation: Normal sinus rhythm rate 61 p.r. interval 201 QRS [address] changes no T-wave inversions similar to previous EKG MDM Narrative Medical decision making narrative: The patient is currently chest pain free no EKG changes however troponin is positive 1.3 cutoff is 0.12. Patient being transferred to higher level of care for NSTEMI no cardiology available at this hospital. <Lacie Diamond DO - Last Filed: 10/15/19 04:24> Lab Data Labs: Lab Results 10/14/19 10/14/19 10/14/19 Range/Units 17:38 17:38 17:38 WBC 7.8 (4.5-11.0) X10^3/uL RBC 4.02 (4.0-5.2) X10^6/uL Hgb 12.9 (12.0-16.0) g/dL Hct 38.2 (36-46) % MCV 94.9 (80-100) fL MCH 32.1 (26-34) PG MCHC 33.8 (30-36) % RDW 13.4 (11.6-14.8) % Plt Count 317 (150-400) X10^3/uL Neut % (Auto) 54.5 (50-75) % Lymph % (Auto) 32.1 (25-40) % White % (Auto) 8.6 (3-14) % Eos % (Auto) 3.7 (2-4) % Baso % (Auto) 1.1 (0-2) % Neut # (Auto) 4200 (6811-0520) /uL Lymph # (Auto) 2500 (4312-8588) /uL White # (Auto) 700 (0-900) /uL Eos # (Auto) 300 (0-450) /uL Baso # (Auto) 100 (0-100) /uL PT 10.6 (10.1-12.7) SECONDS INR 0.9 (0.9-1.3) APTT 34 (26.4-36.2) SECONDS Sodium 136 L (137-145) mmol/L Potassium 3.4 (3.4-5.1) mmol/L Chloride 96 L (98-107) mmol/L Carbon Dioxide 31 (22-32) mmol/L BUN 28 H (7-17) mg/dL Creatinine 1.30 H (0.52-1.04) mg/dL Estimated GFR 40.9 L (>60) mL/min BUN/Creatinine Ratio 21.5 (6-22) Glucose 134 H (80-110) mg/dL Calcium 9.9 (8.4-10.2) mg/dL Total Bilirubin 0.5 (0.2-1.3) mg/dL AST 32 (14-36) IU/L ALT 15 (<35) IU/L Alkaline Phosphatase 87 (38-126) U/L Total Creatine Kinase 150 H (30-135) U/L CK-MB (CK-2) 3.74 H (<2.37) ng/mL CK-MB (CK-2) Rel Index 2.5 (1.5-5.0) % Troponin I 1.360 H* (0.01-0.034) ng/mL Total Protein 7.4 (6.3-8.2) g/dL Albumin 4.5 (3.5-5.0) g/dL Globulin 2.9 (1.7-4.1) g/dL Albumin/Globulin Ratio 1.6 (1.0-2.8) Lipase 101 (23-300) U/L Critical Care Time <Deyanira Roche, - Last Filed: 10/14/19 19:33> Critical Care Time Critical Care Time: Yes Total Critical Care Time: 30 Attestation: The high probability of a clinically significant, sudden or life threatening deterioration of the cardiovascular system(s) required my full and direct attention, intervention and personal management. The aggregate critical care time was 30 minutes. This time is in addition to time spent performing reported procedures but includes the following: x Data Review and interpretation x Patient assessment and monitoring of vital signs x Documentation x Medication orders and management Discharge Plan Departure Patient Disposition: [facility] Clinical Impression: Acute non-ST elevation myocardial infarction (NSTEMI) Discharge Date/Time: 10/14/19 20:33 Prescriptions: No Action Liver-Kidney Cleanser capsule 1 cap PO DAILY RF: 0 Test Strips - Freestyle 0 item SEE INSTRUCTIONS Qty: 2 RF: 1 losartan [Cozaar] 50 mg tablet 50 mg PO BID Qty: 60 RF: 11 metoprolol succinate [Toprol XL] 50 mg tablet extended release 24 hr 50 mg PO BID Qty: 180 RF: 3 nifedipine 10 mg capsule 10 mg PO DAILY Qty: 30 RF: 11 glipizide 5 mg tablet extended release 24hr 5 mg PO DAILY Qty: 90 RF: 3 magnesium oxide 400 mg tablet 400 mg PO DAILY RF: 0 cinnamon bark [Cinnamon] 500 mg capsule 500 mg PO DAILY RF: 0 metformin 1,000 mg tablet 1,000 mg PO BID RF: 0 chlorthalidone 25 mg tablet 25 mg PO DAILY RF: 0 omeprazole 20 MG capsule,delayed release(DR/EC) 20 mg PO DAILY RF: 0 sertraline [Zoloft] 50 mg tablet 50 mg PO DAILY RF: 0 gabapentin 600 mg tablet 600 mg PO TID Qty: 90 RF: 0 Referrals: Nahid Tripp MD [Primary Care Provider] -
[2019-10-14] MEDS: HEPARIN 5,000 UNIT/ML VIAL 5000 UNIT IV (18:49)
[2019-10-14] MEDS: HEPARIN DRIP 25,000 UNIT/500 ML IV.SOLN 20 UNIT IV (18:49)
== END 2019-10-14 20:33 | disposition short-term general hospital (02) ==
PROVIDERS: Emergency Provider Emergency Medicine; Family Provider Family Medicine; PCP Family Medicine
DX: I21.4 Non-ST elevation (NSTEMI) myocardial infarction (principal); I10 Essential (primary) hypertension; E11.9 Type 2 diabetes mellitus without complications
CPT/HCPCS: 36415; 71045; 80053; 82550; 82553; 83690; 84484; 85025; 85610; 85730; 93005; 96365; 96366; 96375; 99284; 99291; J1644

== ENCOUNTER 2019-10-17 23:56 | Emergency (ER) | payer OTHER, SELFPAY ==
[2019-10-18] VITALS (12 sets, daily range): BP systolic 90–149; BP diastolic 38–123; PULSE 55–83; RESP 12–17; TEMP 37.1; O2SAT 14–100; BMI 31.6
--- NOTE | 2019-10-18 00:06 | DI.CT.S_ITS ---
PROCEDURE: CT KIDNEY URETER BLADDER (KUB) INDICATIONS: severe Right flank pain TECHNIQUE: Noncontrast 5 mm thick sections acquired from the diaphragms to the symphysis. 5 mm thick coronal and sagittal reformats were then performed. For radiation dose reduction, the following was used: automated exposure control, adjustment of mA and/or kV according to patient size. COMPARISON: Located Within [facility], CR, XR CHEST 1V, 10/14/2019, 17:51. FINDINGS: Image quality: Excellent. Lung bases: Lung bases are clear. Heart size is normal. Coronary artery calcifications are seen. Urinary system: Both kidneys are normal in size. No kidney stones. No hydronephrosis or perinephric fat stranding. Both ureters appear non-dilated throughout their expected courses. Bladder wall thickness is normal; no calcified bladder stones. Other solid organs: Liver is normal in size. Gallbladder is largely collapsed at the time of this study. Pancreas is normal in contours. Spleen is normal in size. No adrenal nodules. Peritoneum and bowel: Unenhanced bowel loops demonstrate normal wall thickness and caliber. No free fluid or air. Diverticulosis is seen, without findings of active diverticulitis. Nodes and vessels: No retroperitoneal or mesenteric adenopathy by size criteria. Aorta and inferior vena cava are normal in caliber. Atherosclerotic calcification is noted. Abdominal wall: A mild periumbilical hernia is seen, containing fat. Pelvis: Inflammatory change can be seen involving the right common femoral artery, which continues up through the external iliac artery. Surrounding fatty stranding can be seen. No significant associated hemorrhage is seen. No loculated abscess can be seen. No free pelvic fluid. No inguinal hernias or adenopathy. This patient is status post hysterectomy. No adnexal masses are seen. Bones: No suspicious bony lesions. No vertebral body compression fractures. Mild levoconvex scoliotic curvature is noted. Degenerative changes are seen, which are most prominent involving the L5-S1 level. Grade 1 anterolisthesis is seen at L4-L5, without associated pars defects. IMPRESSION: Inflammatory change seen involving the right common iliac artery and the right external iliac artery. No significant surrounding hemorrhage can be seen. Differential diagnosis includes infection and recent instrumentation. Incidental note is made of: Coronary artery calcification Fat-containing periumbilical hernia Diverticulosis is seen, without findings of active diverticulitis. Hysterectomy Levoconvex scoliotic curvature Grade 1 L4-L5 anterolisthesis Focal L5-S1 degenerative change Note: No significant discrepancy from the preliminary report. Dictated by: Cecil Mike M.D. on 10/18/2019 at 8:54 Approved by: Cecil Mike M.D. on 10/18/2019 at 9:01
[2019-10-18 00:17] LABS: Add Manual Diff / Slide Review NO; Basophils Absolute Auto 100 /uL (0-100); Basophils Percent Auto 0.8 % (0-2); Eosinophils Absolute Auto 200 /uL (0-450); Eosinophils Percent Auto 1.3 % (2-4); Hematocrit 36.6 % (36-46); Hemoglobin 12.5 g/dL (12.0-16.0); Lymphocytes Absolute Auto 2800 /uL (1100-4500); Lymphocytes Percent Auto 21.1 % (25-40); Mean Corpuscular HGB Conc 34.2 % (30-36); Mean Corpuscular Hemoglobin 32.6 PG (26-34); Mean Corpuscular Volume 95.4 fL (80-100); Monocytes Absolute Auto 1300 /uL (0-900); Neutrophils Absolute Auto 8900 /uL (1500-7000); Neutrophils Percent Auto 66.8 % (50-75); Platelet Count 276 X10^3/uL (150-400); Red Blood Cell Count 3.83 X10^6/uL (4.0-5.2); Red Cell Distribution Width 13.3 % (11.6-14.8); White Blood Cell Count 13.3 X10^3/uL (4.5-11.0)
[2019-10-18] MEDS: SODIUM CHLORIDE 0.9% 500 ML 1000 ML IV (00:18)
[2019-10-18] MEDS: KETOROLAC 60 MG/2 ML VIAL 15 MG IV (00:18)
--- NOTE | 2019-10-18 00:24 | ED_ITS ---
HPI - Back Pain/Injury General Chief Complaint: Back Pain/Injury Stated Complaint: Right abdominal pain, post [place] Time Seen by Provider: 10/18/19 00:00 Source: patient Mode of arrival: Ambulatory Limitations: no limitations History of Present Illness HPI Narrative: 69-year-old female nonsmoker with cardiac history including a very recent heart catheterization with stent placement, in fact she was just discharged yesterday. She presents with severe, sudden onset right flank pain that radiates around her side. At times it seems to be made worse with motion and palpation at other times becomes very significantly worse with an apparent mind of its own. She denies any fever or chills. She denies dysuria, frequency or urgency. She denies obvious hematuria. She denies nausea, vomiting or diarrhea nor any cardiac equivalent such as chest pain, shortness of breath nor dizziness, weakness or lightheadedness. She has no history of kidney stones. MD Complaint: back pain Onset (ago): hour(s) Duration: intermittent Similar Symptoms Previously: No Location: right flank and right lower back Severity: severe Quality: sharp Radiation: flank Relieving factors: immobilization Exacerbating factors: movement Associated symptoms: denies other symptoms Related Data Home Medications Medication Instructions Recorded Confirmed cinnamon bark 500 mg capsule 500 mg PO DAILY cap 08/12/18 10/14/19 magnesium oxide 400 mg (241.3 mg 400 mg PO DAILY tab 08/12/18 10/14/19 magnesium) tablet Ca [id number] thistle 1 cap PO DAILY cap 04/17/19 10/14/19 chlorthalidone 25 mg PO DAILY 10/14/19 10/14/19 metformin 1,000 mg PO BID 10/14/19 10/14/19 omeprazole 20 mg PO DAILY 10/14/19 10/14/19 sertraline [Zoloft] 50 mg PO DAILY 10/14/19 10/14/19 Previous Rx's Medication Instructions Recorded Test Strips - Freestyle 0 item SEE INSTRUCTIONS #2 07/20/17 losartan 50 mg tablet 50 mg PO BID #60 tab 10/14/18 metoprolol succinate 50 mg 50 mg PO BID #180 tab 02/25/19 tablet,extended release 24 hr nifedipine 10 mg capsule 10 mg PO DAILY #30 cap 07/10/19 glipizide 5 mg tablet, extended 5 mg PO DAILY #90 tab 08/18/19 release 24 hr gabapentin 600 mg tablet 600 mg PO TID #90 tab 09/15/19 Allergies Allergy/AdvReac Type Severity Reaction Status Date / Time hexachlorophene Allergy Mild SWELLING Verified 10/18/19 00:06 [HEXACHLOROPHENE] AT SITE codeine [CODEINE] AdvReac Mild N/V Verified 10/18/19 00:06 hydrochlorothiazide AdvReac Mild CRAMPS Verified 10/18/19 00:06 [HYDROCHLOROTHIAZIDE] Review of Systems Constitutional Constitutional: Denies chills, Denies fatigue, Denies fever(s), Denies frequent falls, Denies lethargy and Denies weakness Eyes Eyes: Denies change in vision, Denies eye discharge, Denies irritation and Denies loss of vision ENT Ears, Nose, Mouth, and Throat: Denies change in voice, Denies dizziness, Denies neck pain, Denies sore throat and Denies throat swelling Cardiovascular Cardiovascular: Denies chest pain, Denies irregular heart rhythm, Denies lightheadedness, Denies palpitations, Denies dyspnea, Denies dyspnea on exertion and Denies orthopnea Respiratory Respiratory: Denies cough, Denies dyspnea, Denies dyspnea on exertion and Denies wheezing Gastrointestinal Gastrointestinal: Denies abdominal pain, Denies change in bowel habits, Denies diarrhea, Denies nausea and Denies vomiting Genitourinary Genitourinary: Denies hematuria, Reports flank pain, Denies urinary incontinence and Denies urinary urgency Musculoskeletal Musculoskeletal: Reports back pain, Denies muscle weakness, Denies neck pain, Denies numbness and Denies tingling Integumentary/Breasts Skin/Breast: Denies pruritus, Denies erythema, Denies rash and Denies wounds Neurologic Neurologic: Denies behavioral changes, Denies confusion, Denies dizziness, Denies frequent falls, Denies loss of vision, Denies numbness, Denies tingling and Denies weakness Psychiatric Psychiatric: Denies anxiety, Denies behavioral changes, Denies confusion, Denies depression, Denies homicidal ideation and Denies suicidal ideation Endocrine Endocrine: Denies fatigue, Denies flushing and Denies palpitations Hematologic/Lymphatic Hematologic/Lymphatic: Denies easy bruising Allergic/Immunologic Allergic/Immunologic: Denies urticaria, Denies throat swelling and Denies wheezing Patient History Medical History Diabetes mellitus (Chronic) GERD (gastroesophageal reflux disease) (Chronic) Hypertension (Chronic) Mixed hyperlipidemia (06/11/17) Surgical History Anesthesia (Resolved) History of knee replacement Status post hysterectomy Family History Father Stroke Mother Lung cancer Social History marital status: household members: spouse Smoking Status: Never smoker alcohol intake: current substance use type: does not use Substance Use Type: does not use Exam Narrative Exam Narrative: GENERAL: [69] year old patient appears stated age. Well- nourished, well-developed patient, in mild distress. Obviously in pain, coming in waves, walking gingerly HEAD: Atraumatic. Normocephalic. EYES: Pupils equal round and reactive. Extraocular motions intact. No scleral icterus. No injection or drainage. ENT: Nose without bleeding, purulent drainage. Throat without erythema, tonsillar hypertrophy or exudate. Airway patent. NECK: Trachea midline. Non tender CARDIOVASCULAR: Regular rate and rhythm without murmurs, gallops, or rubs. RESPIRATORY: Clear to auscultation. Breath sounds equal bilaterally. No wheezes, rales, or rhonchi. GASTROINTESTINAL: Abdomen soft, non-tender, nondistended. EXTREMITIES: No edema or joint tenderness. BACK: Nontender without deformity or crepitance. No flank tenderness. NEURO: AOx3. SKIN: No rash or erythema of visible areas Initial Vital Signs Initial Vital Signs: Vital Signs Temperature 98.7 F 10/18/19 00:06 Pulse Rate 83 10/18/19 00:06 Respiratory Rate 17 10/18/19 00:06 Blood Pressure 149/123 H 10/18/19 00:06 Pulse Oximetry 96 10/18/19 00:06 Course Course Course Narrative: Patient continues to have episodes of bright flank pain. After 1.5 L of normal saline she still has not produced urine. Bladder scan shows no urine and a straight cath results in 35 cc of concentrated urine. Despite fluid resuscitation patient's renal function is worsening at which point I called nephrology in [place] to discuss the case. We sure the opinion that this is likely YESI s/p administration of contrast. Patient waited 48 hours after heart cath before taking metformin. No evidence of obstructive uropathy and no improvement after 1.5L fluid administration. Dr. Soliman requests transfer to [place]. Fractional Excretion of Sodium (FENa) from [facility] on 10/18/2019 All calculations should be rechecked by clinician prior to use RESULT SUMMARY: 0.2 % FENa Pre-Renal e.g. Hypovolemia, heart failure, renal artery stenosis, sepsis (anything causing decreased effective renal perfusion). Remember, contrast-induced nephropathy will often look pre-renal. INPUTS: Serum sodium ?> 134 mEq/L Serum creatinine ?> 2.6 mg/dL Urine sodium ?> 14 mmol/L Urine creatinine ?> 134 mg/dL Orders Ordered: Discontinued Medications Hydromorphone HCl (Dilaudid) 0.5 mg IV NOW ONE Stop: 10/18/19 04:53 Last Admin: 10/18/19 04:58 Dose: 0.5 mg Documented by: RICHY Hydromorphone HCl (Dilaudid) 0.5 mg IV NOW ONE Stop: 10/18/19 07:18 Last Admin: 10/18/19 07:34 Dose: 0.5 mg Documented by: BIA Hydromorphone HCl (Dilaudid) 0.5 mg IV NOW ONE Stop: 10/18/19 08:27 Last Admin: 10/18/19 08:29 Dose: 0.5 mg Documented by: BIA Sodium Chloride (Normal Saline 0.9%) 500 mls @ 1,000 mls/hr IV BOLUS ONE Stop: 10/18/19 00:35 Last Infusion: 10/18/19 01:17 Dose: 0 mls/hr Documented by: Admin: 10/18/19 00:18 Dose: 1,000 mls/hr Documented by: RICHY Sodium Chloride (Normal Saline 0.9%) 1,000 mls @ 1,000 mls/hr IV BOLUS ONE Stop: 10/18/19 02:33 Last Infusion: 10/18/19 03:41 Dose: 0 mls/hr Documented by: Admin: 10/18/19 01:36 Dose: 1,000 mls/hr Documented by: RICHY Ceftriaxone Sodium/Dextrose (Rocephin) 1 gm in 50 mls @ 100 mls/hr IV NOW ONE Stop: 10/18/19 04:40 Last Infusion: 10/18/19 05:41 Dose: 0 mls/hr Documented by: Admin: 10/18/19 04:48 Dose: 100 mls/hr Documented by: RICHY Ketorolac Tromethamine (Toradol) 15 mg IV NOW ONE Stop: 10/18/19 00:07 Last Admin: 10/18/19 00:18 Dose: 15 mg Documented by: RICHY Ondansetron HCl (Zofran) 4 mg IV Q4HR PRN PRN Reason: Nausea And Vomiting Consultations Consultation #1: Dr. Soliman (Nephro) suggests slowing on fluids and sending back to [place] to hospitalist Consultation #2: Dr. Amaya (hospitalist) happy to accept Time: 06:33 Vital Signs Vital signs: Vital Signs - 8 hr 10/18/19 00:06 10/18/19 00:35 10/18/19 01:00 Temperature 98.7 F Pulse Rate 83 75 71 Respiratory Rate 17 16 16 Blood Pressure 149/123 H Blood Pressure [Right Arm] 99/41 L 95/46 L Pulse Oximetry 96 96 94 10/18/19 01:30 10/18/19 02:30 10/18/19 03:00 Temperature Pulse Rate 71 60 67 Respiratory Rate 15 15 16 Blood Pressure Blood Pressure [Right Arm] 90/45 L 108/48 L 107/38 L Pulse Oximetry 69 L 97 98 10/18/19 03:30 10/18/19 04:00 10/18/19 04:30 Temperature Pulse Rate 65 61 61 Respiratory Rate 16 Blood Pressure Blood Pressure [Right Arm] 101/46 L 108/46 L 107/48 L Pulse Oximetry 93 94 93 10/18/19 05:15 Temperature Pulse Rate 55 L Respiratory Rate 13 Blood Pressure Blood Pressure [Right Arm] 111/51 L Pulse Oximetry 97 MDM - Back Pain/Injury Lab Data Result diagrams: 10/18/19 02:12 10/18/19 02:12 Labs: Lab Results 10/18/19 10/18/19 10/18/19 Range/Units 00:10 00:10 02:12 WBC 13.3 H (4.5-11.0) X10^3/uL RBC 3.83 L (4.0-5.2) X10^6/uL Hgb 12.5 10.5 L (12.0-16.0) g/dL Hct 36.6 30.9 L (36-46) % MCV 95.4 (80-100) fL MCH 32.6 (26-34) PG MCHC 34.2 (30-36) % RDW 13.3 (11.6-14.8) % Plt Count 276 (150-400) X10^3/uL Neut % (Auto) 66.8 (50-75) % Lymph % (Auto) 21.1 L (25-40) % [place] % (Auto) 10.0 (3-14) % Eos % (Auto) 1.3 L (2-4) % Baso % (Auto) 0.8 (0-2) % Neut # (Auto) 8900 H (0154-5746) /uL Lymph # (Auto) 2800 (6985-2892) /uL [place] # (Auto) 1300 H (0-900) /uL Eos # (Auto) 200 (0-450) /uL Baso # (Auto) 100 (0-100) /uL Sodium 134 L (137-145) mmol/L Potassium 3.8 (3.4-5.1) mmol/L Chloride 96 L (98-107) mmol/L Carbon Dioxide 26 (22-32) mmol/L BUN 23 H (7-17) mg/dL Creatinine 2.50 H (0.52-1.04) mg/dL Estimated GFR 19.2 L (>60) mL/min BUN/Creatinine Ratio 9.2 (6-22) Glucose 153 H (80-110) mg/dL Calcium 10.2 (8.4-10.2) mg/dL Urine RBC (0-5/HPF) Urine WBC (0-5/HPF) Ur Squamous Epith Cells (0-5/HPF) Urine Bacteria (None) Hyaline Casts (None) Ur Culture Indicated? Ur Random Sodium (30-90) mmol/L Urine Creatinine mg/dL 10/18/19 10/18/19 10/18/19 Range/Units 02:12 03:30 03:30 WBC (4.5-11.0) X10^3/uL RBC (4.0-5.2) X10^6/uL Hgb (12.0-16.0) g/dL Hct (36-46) % MCV (80-100) fL MCH (26-34) PG MCHC (30-36) % RDW (11.6-14.8) % Plt Count (150-400) X10^3/uL Neut % (Auto) (50-75) % Lymph % (Auto) (25-40) % [place] % (Auto) (3-14) % Eos % (Auto) (2-4) % Baso % (Auto) (0-2) % Neut # (Auto) (4864-2957) /uL Lymph # (Auto) (3974-4553) /uL [place] # (Auto) (0-900) /uL Eos # (Auto) (0-450) /uL Baso # (Auto) (0-100) /uL Sodium (137-145) mmol/L Potassium (3.4-5.1) mmol/L Chloride (98-107) mmol/L Carbon Dioxide (22-32) mmol/L BUN (7-17) mg/dL Creatinine 2.60 H (0.52-1.04) mg/dL Estimated GFR 18.4 L (>60) mL/min BUN/Creatinine Ratio (6-22) Glucose (80-110) mg/dL Calcium (8.4-10.2) mg/dL Urine RBC None seen (0-5/HPF) Urine WBC 30-100/hpf H (0-5/HPF) Ur Squamous Epith Cells 1-5 /hpf (0-5/HPF) Urine Bacteria Many (>30) H (None) Hyaline Casts 0-1/lpf (None) Ur Culture Indicated? Specimen cultured Ur Random Sodium 14 L (30-90) mmol/L Urine Creatinine 134.4 mg/dL Urine Dip Bedside Urine Glucose Negative Bedside Urine Bilirubin + 1 Bedside Urine Ketone +/- 5 Urine Specific [place] 1.020 Bedside Urine Occult Blood - Negative Bedside Urine pH 6.0 Bedside Urine Protein + 30 Bedside Urine Urobilinogen - Negative Bedside Urine Nitrite - Negative Bedside Urine Leukocytes + 70 Esterase Critical Care Time Critical Care Time Critical Care Time: Yes Total Critical Care Time: 35 Attestation: The high probability of a clinically significant, sudden or life threatening deterioration of the [CV, renal] system(s) required my full and direct attent ion, intervention and personal management. The aggregate critical care time was [35] minutes. This time is in addition to time spent performing reported procedures but includes the following: [x] Data Review and interpretation [x] Patient assessment and monitoring of vital signs [x] Documentation [x] Medication orders and management Discharge Plan Departure Patient Disposition: [facility] Clinical Impression: Acute pyelonephritis Acute renal failure (ARF) Qualifiers: Acute renal failure type: unspecified Qualified Code(s): N17.9 - Acute kidney failure, unspecified Discharge Date/Time: 10/18/19 08:37 Prescriptions: No Action Liver-Kidney Cleanser capsule 1 cap PO DAILY RF: 0 Test Strips - Freestyle 0 item SEE INSTRUCTIONS Qty: 2 RF: 1 losartan [Cozaar] 50 mg tablet 50 mg PO BID Qty: 60 RF: 11 metoprolol succinate [Toprol XL] 50 mg tablet extended release 24 hr 50 mg PO BID Qty: 180 RF: 3 nifedipine 10 mg capsule 10 mg PO DAILY Qty: 30 RF: 11 glipizide 5 mg tablet extended release 24hr 5 mg PO DAILY Qty: 90 RF: 3 magnesium oxide 400 mg tablet 400 mg PO DAILY RF: 0 cinnamon bark [Cinnamon] 500 mg capsule 500 mg PO DAILY RF: 0 metformin 1,000 mg tablet 1,000 mg PO BID RF: 0 chlorthalidone 25 mg tablet 25 mg PO DAILY RF: 0 omeprazole 20 MG capsule,delayed release(DR/EC) 20 mg PO DAILY RF: 0 sertraline [Zoloft] 50 mg tablet 50 mg PO DAILY RF: 0 gabapentin 600 mg tablet 600 mg PO TID Qty: 90 RF: 0 Referrals: Nahid Tripp MD [Primary Care Provider] -
[2019-10-18 00:27] LABS: BUN Creatinine Ratio 9.2 (6-22); Blood Urea Nitrogen 23 mg/dL (7-17); Calcium 10.2 mg/dL (8.4-10.2); Carbon Dioxide 26 mmol/L (22-32); Chloride 96 mmol/L (98-107); Estimated Glomerular Filt Rate 19.2 mL/min (>60); Glucose 153 mg/dL (80-110); HEMOLYSIS 16 (0-50); Potassium 3.8 mmol/L (3.4-5.1); Sodium 134 mmol/L (137-145)
--- NOTE | 2019-10-18 01:11 | DI.US.S_ITS ---
PROCEDURE: US RENAL COMPLETE INDICATIONS: SEVERE FLANK PAIN; ACUTE KIDNEY INJURY TECHNIQUE: Real-time scanning was performed of the kidneys and bladder, with image documentation. COMPARISON: [facility], CT, CT KIDNEY URETER BLADDER (KUB), 10/18/2019, 0:10. FINDINGS: Kidneys: Kidneys are normal in size. Right kidney measures 10.3 cm long; left kidney measures 10.5 cm long. Right renal cortical thickness is 1.8 cm; left renal cortical thickness is 1.4 cm. Renal cortical echotexture is normal. No hydronephrosis or nephrolithiasis. No suspicious solid mass lesions. Bladder: Not seen. Not distended. Miscellaneous: No free pelvic fluid. IMPRESSION: Normal kidneys, without hydronephrosis. Note: No significant discrepancy from the preliminary report. Dictated by: Cecil Mike M.D. on 10/18/2019 at 9:01 Approved by: Cecil Mike M.D. on 10/18/2019 at 9:02
[2019-10-18] MEDS: SODIUM CHLORIDE 0.9% 1,000 ML 1000 ML IV (01:36)
--- NOTE | 2019-10-18 01:43 | PC.NURSE ---
Provider aware of Systolic bp dropping. ordered 1 L bolus of NS at this time. Pt denies any dizziness.
[2019-10-18 02:38] LABS: Estimated Glomerular Filt Rate 18.4 mL/min (>60)
[2019-10-18 02:41] LABS: Hematocrit 30.9 % (36-46); Hemoglobin 10.5 g/dL (12.0-16.0)
[2019-10-18 03:52] LABS: RBC Urine None Seen (0-5/HPF)
[2019-10-18 04:02] LABS: Bacteria Urine Many (>30); Culture Indicated Urine Specimen Cultured; Hyaline Casts Urine 0-1/LPF; Squamous Epithelial Cell Urine 1-5 /HPF (0-5/HPF); WBC Urine 30-100/HPF (0-5/HPF)
[2019-10-18 04:04] LABS: Sodium Urine Random 14 mmol/L (30-90)
[2019-10-18 04:42] LABS: Creatinine Urine Random 134.4 mg/dL
[2019-10-18] MEDS: CEFTRIAXONE 1 GM/50 ML FROZ.PIGGY IV (04:48)
[2019-10-18] MEDS: HYDROMORPHONE 0.5 MG INJ IV ×3 (04:58→08:29)
--- NOTE | 2019-10-18 07:18 | PC.NURSE ---
Obtained patient care. Provider at bedside discussing transfer. Verbal order for additional dose of pain medication given. Jermaine reports pain creeping back up in her right flank. Pt denies the urge to urinate at this time.
--- NOTE | 2019-10-18 08:36 | PC.NURSE ---
Patinet's pain significantly worse after transferring to ambulance stretcher. Patient received IV 0.5mg Dilaudid prior to transport out of department.
== END 2019-10-18 08:37 | disposition short-term general hospital (02) ==
PROVIDERS: Emergency Provider Emergency Medicine; PCP Family Medicine
DX: N10 Acute pyelonephritis (principal); N17.9 Acute kidney failure, unspecified; I10 Essential (primary) hypertension; E11.9 Type 2 diabetes mellitus without complications; E78.5 Hyperlipidemia, unspecified; Z95.5 Presence of coronary angioplasty implant and graft
CPT/HCPCS: 36415; 51798; 74176; 76770; 80048; 81003; 81015; 82565; 82570; 84300; 85014; 85018; 85025; 87077; 87086; 87186; 93005; 96361; 96365; 96375; 96376; 99285; 99291; J1170; J1885

== ENCOUNTER → 2019-11-05 10:31 | Outpatient (CLI) | payer OTHER, SELFPAY ==
[2019-11-05 11:04] LABS: Add Manual Diff / Slide Review NO; Basophils Absolute Auto 100 /uL (0-100); Eosinophils Absolute Auto 200 /uL (0-450); Eosinophils Percent Auto 2.3 % (2-4); Hemoglobin 11.8 g/dL (12.0-16.0); Lymphocytes Absolute Auto 1800 /uL (1100-4500); Lymphocytes Percent Auto 21.8 % (25-40); Mean Corpuscular HGB Conc 33.7 % (30-36); Mean Corpuscular Hemoglobin 31.2 PG (26-34); Mean Corpuscular Volume 92.5 fL (80-100); Monocytes Absolute Auto 500 /uL (0-900); Monocytes Percent Auto 6.4 % (3-14); Neutrophils Absolute Auto 5600 /uL (1500-7000); Neutrophils Percent Auto 68.5 % (50-75); Platelet Count 573 X10^3/uL (150-400); Red Blood Cell Count 3.79 X10^6/uL (4.0-5.2); Red Cell Distribution Width 13.2 % (11.6-14.8); White Blood Cell Count 8.1 X10^3/uL (4.5-11.0)
[2019-11-05 11:36] LABS: BUN Creatinine Ratio 17.1 (6-22); Blood Urea Nitrogen 24 mg/dL (7-17); Calcium 10.6 mg/dL (8.4-10.2); Carbon Dioxide 27 mmol/L (22-32); Chloride 98 mmol/L (98-107); Estimated Glomerular Filt Rate 37.5 mL/min (>60); Glucose 130 mg/dL (80-110); HEMOLYSIS < 15 (0-50); Potassium 3.9 mmol/L (3.4-5.1); Sodium 137 mmol/L (137-145)
== END ==
PROVIDERS: PCP Family Medicine; Visit Provider Internal Medicine Cardiovascular Disease
DX: I25.10 Atherosclerotic heart disease of native coronary artery without angina pectoris (principal)
CPT/HCPCS: 36415; 80048; 85025

== ENCOUNTER 2019-11-13 13:09 | Emergency (ER) | payer OTHER, SELFPAY ==
[2019-11-13 13:15] VITALS: BP 118/56; PULSE 73; RESP 18; TEMP 36.4; O2SAT 98; BMI 29.5
--- NOTE | 2019-11-13 13:25 | DI.RAD.S_ITS ---
PROCEDURE: XR CHEST 1V INDICATIONS: chest pain TECHNIQUE: One view of the chest was acquired. COMPARISON: [facility], CR, XR CHEST 1V, 10/14/2019, 17:51. FINDINGS: Surgical changes and devices: None. Lungs and pleura: Lungs are clear. No pleural effusions or pneumothorax. Mediastinum: Mediastinal contours appear normal. Heart size is normal. Bones and chest wall: No suspicious bony lesions. Overlying soft tissues appear unremarkable. IMPRESSION: 1. No acute cardiopulmonary disease. Dictated by: Chester Ballesteros M.D. on 11/13/2019 at 13:41 Approved by: Chester Ballesteros M.D. on 11/13/2019 at 13:41
[2019-11-13 13:30] VITALS: BP 96/72; PULSE 65; RESP 18; O2SAT 98
--- NOTE | 2019-11-13 13:30 | ED.CHESTPAIN ---
HPI - Chest Pain General Chief Complaint: Chest Pain Stated Complaint: pain right lower back, hurts to take deep breath Time Seen by Provider: 11/13/19 13:22 Source: patient Mode of arrival: Ambulatory Limitations: no limitations History of Present Illness HPI narrative: Patient is a 69-year-old female with history of coronary artery disease and recent kidney failure secondary to contrast presenting with right-sided back pain ongoing for the last 2 days along with left-sided chest pain which hurts every time she takes of breath. She denies any or productive cough however she has all over body aches. She denies any radiation of her right-sided flank pain no hematuria. She denies any injury. No prior history of kidney stones. Pain ease is reproducible with touch on her left chest and reproducible with movement in her back. She has to move very slowly while turning over cause her back will hurt. She has taken her 's pain medication including oxycodone and tramadol for her back neither which have helped. Related Data Home Medications Medication Instructions Recorded Confirmed cinnamon bark 500 mg capsule 500 mg PO DAILY cap 08/12/18 11/13/19 magnesium oxide 400 mg (241.3 mg 400 mg PO DAILY tab 08/12/18 11/13/19 magnesium) tablet Ca [id number]-[id number] thistle 1 cap PO DAILY cap 04/17/19 11/13/19 chlorthalidone 25 mg PO DAILY 10/14/19 11/13/19 metformin 1,000 mg PO BID 10/14/19 11/13/19 omeprazole 20 mg PO DAILY 10/14/19 11/13/19 sertraline [Zoloft] 50 mg PO DAILY 10/14/19 11/13/19 celecoxib 200 mg capsule 200 mg PO DAILY 11/06/19 11/13/19 losartan 50 mg tablet 50 mg PO BID tab 11/06/19 11/13/19 metoprolol succinate 50 mg 25 mg PO BID tab 11/06/19 11/13/19 tablet,extended release 24 hr rosuvastatin 10 mg tablet 10 mg PO DAILY 11/06/19 11/13/19 aspirin 81 mg PO DAILY 11/13/19 11/13/19 ticagrelor [Brilinta] 90 mg PO BID 11/13/19 11/13/19 tramadol 50 mg PO TID PRN 11/13/19 11/13/19 Previous Rx's Medication Instructions Recorded Test Strips - Freestyle 0 item SEE INSTRUCTIONS #2 07/20/17 nifedipine 10 mg capsule 10 mg PO DAILY #30 cap 07/10/19 glipizide 5 mg tablet, extended 5 mg PO DAILY #90 tab 08/18/19 release 24 hr gabapentin 600 mg tablet 600 mg PO TID #90 tab 09/15/19 trazodone 50 mg tablet 50 mg PO BEDTIME PRN #30 tab 11/06/19 cyclobenzaprine 10 mg PO TID PRN #10 tab 11/13/19 oxycodone-acetaminophen [Percocet] 1 tab PO Q6H PRN #10 tab 11/13/19 Allergies Allergy/AdvReac Type Severity Reaction Status Date / Time hexachlorophene Allergy Mild SWELLING Verified 11/13/19 13:22 [HEXACHLOROPHENE] AT SITE Iodinated Contrast Media Allergy Verified 11/13/19 13:22 codeine [CODEINE] AdvReac Mild N/V Verified 11/13/19 13:22 hydrochlorothiazide AdvReac Mild CRAMPS Verified 11/13/19 13:22 [HYDROCHLOROTHIAZIDE] Review of Systems Review of Systems Narrative: GENERAL: Denies chills, fatigue, malaise, fever, sweats, travel HEENT: Denies sinus pain, ear pain, sore throat, difficulty swallowing, neck pain RESPIRATORY: Denies dyspnea, cough, wheezing, hemoptysis, sputum. CARDIOVASCULAR: Left-sided chest pain see HPI GASTROINTESTINAL: Denies nausea, vomiting, abdominal pain, diarrhea, constipation, melena. : Denies dysuria, frequency, incontinence, hematuria, urinary retention, flank pain. MUSCULOSKELETAL: See HPI SKIN: No rash, no erythema, no pruritus NEUROLOGIC: Denies weakness, dizziness, headache, numbness, change in speech, confusion PSYCHIATRIC: No concerning psychosocial issues. 12 point review of systems is negative except for those stated above and HPI Patient History Social History marital status: household members: spouse Smoking Status: Never smoker alcohol intake: current substance use type: does not use Smoking Status: Never smoker Substance Use Type: does not use Exam Initial Vital Signs Initial Vital Signs: Vital Signs Temperature 97.6 F 11/13/19 13:15 Pulse Rate 73 11/13/19 13:15 Respiratory Rate 18 11/13/19 13:15 Blood Pressure 118/56 L 11/13/19 13:15 Pulse Oximetry 98 11/13/19 13:15 GENERAL: Well-appearing, well-nourished and in no acute distress. HEENT: Head atraumatic,EOMI, pupils reactive, face symmetric CARDIOVASCULAR: Regular rate and rhythm without murmurs, rubs or gallops. RESPIRATORY: Breath sounds equal bilaterally, no wheezes rales or rhonchi. ABDOMEN: Soft, nontender. Normoactive bowel sounds all 4 quadrants. No guarding or rebound. BACK: No vertebral tenderness right-sided lumbar pain : No CVA tenderness EXTREMITIES: Normal range of motion, no clubbing or edema. Neurovascularly intact NEUROLOGICAL: Alert and oriented x4.Normal gait and speech. SKIN: Warm, dry, no laceration, no petechiae, no rashes or lesions. Course Orders Ordered: ED Orders 11/13/19 13:25 XR chest 1V Stat 11/13/19 13:38 Complete Blood Count AUTO DIFF Stat Comprehensive Metabolic Panel Stat Lipase Stat Partial Thromboplastin Time Stat Prothrombin Time INR Stat Troponin & CK Cardiac Panel Stat 11/13/19 13:40 Flu test [Influenza A & B (PCR)] Stat Discontinued Medications Hydromorphone HCl (Dilaudid) 1 mg IV NOW ONE Stop: 11/13/19 13:53 Last Admin: 11/13/19 14:27 Dose: 1 mg Documented by: KASEY Vital Signs Vital signs: Vital Signs - 8 hr 11/13/19 13:15 11/13/19 13:30 11/13/19 14:00 Temperature 97.6 F Pulse Rate 73 65 65 Respiratory Rate 18 18 Blood Pressure 118/56 L Blood Pressure [Right Arm] 96/72 101/57 L Pulse Oximetry 98 98 95 11/13/19 15:33 11/13/19 15:55 Temperature Pulse Rate 62 60 Respiratory Rate 14 16 Blood Pressure 101/57 L Blood Pressure [Right Arm] 101/57 L Pulse Oximetry 95 94 MDM - Chest Pain Lab Data Attestation: I reviewed the patient's lab results. Result diagrams: 11/13/19 13:38 11/13/19 13:38 Labs: Lab Results 11/13/19 11/13/19 11/13/19 Range/Units 13:38 13:38 13:38 WBC 12.2 H (4.5-11.0) X10^3/uL RBC 3.32 L (4.0-5.2) X10^6/uL Hgb 10.2 L (12.0-16.0) g/dL Hct 30.2 L (36-46) % MCV 90.9 (80-100) fL MCH 30.7 (26-34) PG MCHC 33.7 (30-36) % RDW 13.2 (11.6-14.8) % Plt Count 278 (150-400) X10^3/uL Neut % (Auto) 78.3 H (50-75) % Lymph % (Auto) 13.1 L (25-40) % Tyrrell % (Auto) 7.3 (3-14) % Eos % (Auto) 0.9 L (2-4) % Baso % (Auto) 0.4 (0-2) % Neut # (Auto) 9600 H (6539-3755) /uL Lymph # (Auto) 1600 (8750-0463) /uL Tyrrell # (Auto) 900 (0-900) /uL Eos # (Auto) 100 (0-450) /uL Baso # (Auto) 0 (0-100) /uL PT 12.8 H (10.1-12.7) SECONDS INR 1.1 (0.9-1.3) APTT 35 (26.4-36.2) SECONDS Sodium 131 L (137-145) mmol/L Potassium 3.1 L (3.4-5.1) mmol/L Chloride 91 L (98-107) mmol/L Carbon Dioxide 27 (22-32) mmol/L BUN 17 (7-17) mg/dL Creatinine 1.30 H (0.52-1.04) mg/dL Estimated GFR 40.9 L (>60) mL/min BUN/Creatinine Ratio 13.1 (6-22) Glucose 172 H (80-110) mg/dL Calcium 9.7 (8.4-10.2) mg/dL Total Bilirubin 0.8 (0.2-1.3) mg/dL AST 15 (14-36) IU/L ALT 10 (<35) IU/L Alkaline Phosphatase 78 (38-126) U/L Total Creatine Kinase 34 (30-135) U/L CK-MB (CK-2) TNP CK-MB (CK-2) Rel Index TNP Troponin I < 0.012 (0.01-0.034) ng/mL Total Protein 7.3 (6.3-8.2) g/dL Albumin 4.2 (3.5-5.0) g/dL Globulin 3.1 (1.7-4.1) g/dL Albumin/Globulin Ratio 1.4 (1.0-2.8) Lipase 60 (23-300) U/L Influenza A (RT-PCR) (NEGATIVE) Influenza B (RT-PCR) (NEGATIVE) 11/13/19 Range/Units 13:40 WBC (4.5-11.0) X10^3/uL RBC (4.0-5.2) X10^6/uL Hgb (12.0-16.0) g/dL Hct (36-46) % MCV (80-100) fL MCH (26-34) PG MCHC (30-36) % RDW (11.6-14.8) % Plt Count (150-400) X10^3/uL Neut % (Auto) (50-75) % Lymph % (Auto) (25-40) % Tyrrell % (Auto) (3-14) % Eos % (Auto) (2-4) % Baso % (Auto) (0-2) % Neut # (Auto) (8175-2421) /uL Lymph # (Auto) (7040-7203) /uL Tyrrell # (Auto) (0-900) /uL Eos # (Auto) (0-450) /uL Baso # (Auto) (0-100) /uL PT (10.1-12.7) SECONDS INR (0.9-1.3) APTT (26.4-36.2) SECONDS Sodium (137-145) mmol/L Potassium (3.4-5.1) mmol/L Chloride (98-107) mmol/L Carbon Dioxide (22-32) mmol/L BUN (7-17) mg/dL Creatinine (0.52-1.04) mg/dL Estimated GFR (>60) mL/min BUN/Creatinine Ratio (6-22) Glucose (80-110) mg/dL Calcium (8.4-10.2) mg/dL Total Bilirubin (0.2-1.3) mg/dL AST (14-36) IU/L ALT (<35) IU/L Alkaline Phosphatase (38-126) U/L Total Creatine Kinase (30-135) U/L CK-MB (CK-2) CK-MB (CK-2) Rel Index Troponin I (0.01-0.034) ng/mL Total Protein (6.3-8.2) g/dL Albumin (3.5-5.0) g/dL Globulin (1.7-4.1) g/dL Albumin/Globulin Ratio (1.0-2.8) Lipase (23-300) U/L Influenza A (RT-PCR) Flu a negative (NEGATIVE) Influenza B (RT-PCR) Flu b negative (NEGATIVE) ECG Data Attestation: I personally reviewed and interpreted this ECG as follows: Prior ECG tracings: available for review Interpretation: Normal sinus rhythm rate 64 p.r. interval 196 QRS [address] elevation depression or T-wave inversion MDM Narrative Medical decision making narrative: Patient's back and chest pain is definitely worse with movement. It appears to be musculoskeletal. Her renal function is improving her troponin is negative. She has had ongoing pain for the last 4 days unlikely to be cardiac related. She has actually had back pain ongoing for the last 4 days. Pain Is better with Dilaudid Discussed case with Dr. Tripp patient's PCP,. Will work on getting patient health care. Discharge Plan Departure Patient Disposition: Home Clinical Impression: Acute costochondritis Back pain Qualifiers: Back pain location: low back pain Chronicity: acute Back pain laterality: right Sciatica presence: without sciatica Qualified Code(s): M54.5 - Low back pain Discharge Date/Time: 11/13/19 15:55 Instructions: Costochondritis, DI for Thoracic Back Pain Activity Restrictions/Additional Instructions: *You have been diagnosed with back pain and costochondritis *What to do: Recommend stretching, heating pad. At this time blood work is overall reassuring *Continue to take medications as directed Percocet 1 tablet every 6 hours if needed for pain Cyclobenzaprine 1 tablet every 8 hours if needed for muscle spasm *Follow up with your primary care provider in 2-3 days *Return to ER if you should have inability to walk loss of urine worsening back pain or chest pain or any new, worsening or concerning symptoms CONTROLLED SUBSTANCE DISCHARGE (Narcotoic/benzodiazepine/Flexeril/Phenergan) 1. You have been prescribed narcotic medications, it does have acetaminophen/Tylenol/paracetamol in it so do not take extra Tylenol or Tylenol containing products 2. Please understand that we cannot provide further refills of narcotics, benzodiazepines or controlled substances through the ED and her pain management will need to be through your provider. 3. While on these medications you cannot drive or operate heavy machinery. 4. You cannot sign legal documents or perform any duties such as this. 5. As long as you're taking opiate pain medications he should also be taking a stool softener such as Colace, Dulcolax, MiraLAX or prune juice, to help avoid constipation. Prescriptions: New oxycodone-acetaminophen [Percocet] 5-325 mg tablet 1 tab PO Q6H PRN (Reason: pain) Qty: 10 RF: 0 cyclobenzaprine 10 mg tablet 10 mg PO TID PRN (Reason: muscle spasm) Qty: 10 RF: 0 No Action trazodone 50 mg tablet 50 mg PO BEDTIME PRN (Reason: sleep) Qty: 30 RF: 0 losartan 50 mg tablet 50 mg PO BID RF: 0 metoprolol succinate [Toprol XL] 50 mg tablet extended release 24 hr 25 mg PO BID RF: 0 rosuvastatin [Crestor] 10 mg tablet 10 mg PO DAILY RF: 0 celecoxib 200 mg capsule 200 mg PO DAILY RF: 0 Liver-Kidney Cleanser capsule 1 cap PO DAILY RF: 0 Test Strips - Freestyle 0 item SEE INSTRUCTIONS Qty: 2 RF: 1 nifedipine 10 mg capsule 10 mg PO DAILY Qty: 30 RF: 11 glipizide 5 mg tablet extended release 24hr 5 mg PO DAILY Qty: 90 RF: 3 magnesium oxide 400 mg tablet 400 mg PO DAILY RF: 0 cinnamon bark [Cinnamon] 500 mg capsule 500 mg PO DAILY RF: 0 metformin 1,000 mg tablet 1,000 mg PO BID RF: 0 chlorthalidone 25 mg tablet 25 mg PO DAILY RF: 0 omeprazole 20 MG capsule,delayed release(DR/EC) 20 mg PO DAILY RF: 0 sertraline [Zoloft] 50 mg tablet 50 mg PO DAILY RF: 0 Brilinta 90 mg tablet 90 mg PO BID RF: 0 tramadol 50 mg tablet 50 mg PO TID PRN (Reason: pain) RF: 0 aspirin 81 mg Tablet,Delayed Release (Dr/Ec) 81 mg PO DAILY RF: 0 gabapentin 600 mg tablet 600 mg PO TID Qty: 90 RF: 0 Referrals: Nahid Tripp MD [Primary Care Provider] -
[2019-11-13 14:00] VITALS: BP 101/57; PULSE 65; O2SAT 95
[2019-11-13 14:10] LABS: Add Manual Diff / Slide Review NO; Alanine Aminotransferase 10 IU/L (<35); Albumin 4.2 g/dL (3.5-5.0); Albumin Globulin Ratio 1.4 (1.0-2.8); Alkaline Phosphatase 78 U/L (38-126); Aspartate Aminotransferase 15 IU/L (14-36); BUN Creatinine Ratio 13.1 (6-22); Basophils Absolute Auto 0 /uL (0-100); Basophils Percent Auto 0.4 % (0-2); Bilirubin Total 0.8 mg/dL (0.2-1.3); Blood Urea Nitrogen 17 mg/dL (7-17); Calcium 9.7 mg/dL (8.4-10.2); Carbon Dioxide 27 mmol/L (22-32); Chloride 91 mmol/L (98-107); Creatine Kinase 34 U/L (30-135); Eosinophils Absolute Auto 100 /uL (0-450); Eosinophils Percent Auto 0.9 % (2-4); Estimated Glomerular Filt Rate 40.9 mL/min (>60); Globulin 3.1 g/dL (1.7-4.1); Glucose 172 mg/dL (80-110); HEMOLYSIS < 15 (0-50); Hematocrit 30.2 % (36-46); Hemoglobin 10.2 g/dL (12.0-16.0); INR 1.1 (0.9-1.3); Lipase 60 U/L (23-300); Lymphocytes Absolute Auto 1600 /uL (1100-4500); Lymphocytes Percent Auto 13.1 % (25-40); Mean Corpuscular HGB Conc 33.7 % (30-36); Mean Corpuscular Hemoglobin 30.7 PG (26-34); Mean Corpuscular Volume 90.9 fL (80-100); Monocytes Absolute Auto 900 /uL (0-900); Monocytes Percent Auto 7.3 % (3-14); Neutrophils Absolute Auto 9600 /uL (1500-7000); Neutrophils Percent Auto 78.3 % (50-75); PTT Partial Thromboplastin Tim 35 SECONDS (26.4-36.2); Platelet Count 278 X10^3/uL (150-400); Potassium 3.1 mmol/L (3.4-5.1); Prothrombin Time 12.8 SECONDS (10.1-12.7); Red Blood Cell Count 3.32 X10^6/uL (4.0-5.2); Red Cell Distribution Width 13.2 % (11.6-14.8); Sodium 131 mmol/L (137-145); Total Protein 7.3 g/dL (6.3-8.2); Troponin I < 0.012 ng/mL (0.01-0.034); White Blood Cell Count 12.2 X10^3/uL (4.5-11.0)
[2019-11-13 14:25] LABS: Influenza A - CEPHEID Flu A NEGATIVE (NEGATIVE); Influenza B - CEPHEID Flu B NEGATIVE (NEGATIVE)
[2019-11-13] MEDS: HYDROMORPHONE 1 MG INJ IV (14:27)
[2019-11-13 15:33] VITALS: BP 101/57; PULSE 62; RESP 14; O2SAT 95
[2019-11-13 15:55] VITALS: BP 101/57; PULSE 60; RESP 16; O2SAT 94
== END 2019-11-13 15:55 | disposition home or self-care (01) ==
PROVIDERS: Emergency Provider Emergency Medicine; PCP Family Medicine
DX: M94.0 Chondrocostal junction syndrome [Tietze] (principal); M54.5 Low back pain
CPT/HCPCS: 36415; 71045; 80053; 82550; 83690; 84484; 85025; 85610; 85730; 87502; 93005; 96374; 99284; 99285; J1170

== ENCOUNTER → 2019-11-24 15:08 | Outpatient (CLI) | payer OTHER, SELFPAY ==
[2019-11-24 16:21] LABS: Add Manual Diff / Slide Review NO; Basophils Absolute Auto 100 /uL (0-100); Basophils Percent Auto 0.8 % (0-2); Eosinophils Absolute Auto 100 /uL (0-450); Eosinophils Percent Auto 1.6 % (2-4); Hematocrit 33.5 % (36-46); Hemoglobin 11.4 g/dL (12.0-16.0); Lymphocytes Absolute Auto 2600 /uL (1100-4500); Mean Corpuscular HGB Conc 33.9 % (30-36); Mean Corpuscular Hemoglobin 30.1 PG (26-34); Mean Corpuscular Volume 88.8 fL (80-100); Monocytes Absolute Auto 800 /uL (0-900); Monocytes Percent Auto 8.9 % (3-14); Neutrophils Absolute Auto 5300 /uL (1500-7000); Neutrophils Percent Auto 59.7 % (50-75); Platelet Count 637 X10^3/uL (150-400); Red Blood Cell Count 3.78 X10^6/uL (4.0-5.2); Red Cell Distribution Width 13.7 % (11.6-14.8); White Blood Cell Count 8.8 X10^3/uL (4.5-11.0)
[2019-11-24 17:18] LABS: Alanine Aminotransferase 17 IU/L (<35); Albumin 4.5 g/dL (3.5-5.0); Albumin Globulin Ratio 1.7 (1.0-2.8); Alkaline Phosphatase 113 U/L (38-126); Aspartate Aminotransferase 22 IU/L (14-36); Bilirubin Total 0.4 mg/dL (0.2-1.3); Blood Urea Nitrogen 14 mg/dL (7-17); Calcium 10.4 mg/dL (8.4-10.2); Carbon Dioxide 25 mmol/L (22-32); Chloride 88 mmol/L (98-107); Estimated Glomerular Filt Rate 37.5 mL/min (>60); Globulin 2.6 g/dL (1.7-4.1); Glucose 146 mg/dL (80-110); HEMOLYSIS < 15 (0-50); Potassium 3.7 mmol/L (3.4-5.1); Sodium 131 mmol/L (137-145); Total Protein 7.1 g/dL (6.3-8.2)
== END ==
PROVIDERS: PCP Family Medicine; Visit Provider Family Medicine
DX: I25.10 Atherosclerotic heart disease of native coronary artery without angina pectoris (principal); Z95.5 Presence of coronary angioplasty implant and graft
CPT/HCPCS: 36415; 80053; 85025

== ENCOUNTER → 2019-12-08 09:50 | Outpatient (CLI) | payer OTHER, SELFPAY ==
[2019-12-08 10:49] LABS: Hematocrit 32.3 % (36-46); Hemoglobin 10.9 g/dL (12.0-16.0); Mean Corpuscular HGB Conc 33.6 % (30-36); Mean Corpuscular Hemoglobin 29.7 PG (26-34); Mean Corpuscular Volume 88.2 fL (80-100); Platelet Count 414 X10^3/uL (150-400); Red Blood Cell Count 3.67 X10^6/uL (4.0-5.2); White Blood Cell Count 11.4 X10^3/uL (4.5-11.0)
[2019-12-08 10:59] LABS: Alanine Aminotransferase 12 IU/L (<35); Albumin 4.4 g/dL (3.5-5.0); Albumin Globulin Ratio 1.4 (1.0-2.8); Alkaline Phosphatase 90 U/L (38-126); Aspartate Aminotransferase 18 IU/L (14-36); BUN Creatinine Ratio 11.7 (6-22); Bilirubin Total 0.5 mg/dL (0.2-1.3); Blood Urea Nitrogen 14 mg/dL (7-17); Carbon Dioxide 27 mmol/L (22-32); Chloride 95 mmol/L (98-107); Estimated Glomerular Filt Rate 44.8 mL/min (>60); Globulin 3.2 g/dL (1.7-4.1); Glucose 180 mg/dL (80-110); HEMOLYSIS < 15 (0-50); Sodium 134 mmol/L (137-145); Total Protein 7.6 g/dL (6.3-8.2)
[2019-12-08 11:53] LABS: Neutrophils Absolute Manual 9006 /uL (3000-5900); RBC Morphology Normal Morphology; Total Cells Counted 100
== END ==
PROVIDERS: PCP Family Medicine; Visit Provider Family Medicine
DX: E11.9 Type 2 diabetes mellitus without complications (principal); I10 Essential (primary) hypertension; N18.9 Chronic kidney disease, unspecified
CPT/HCPCS: 36415; 80053; 85025

== ENCOUNTER → 2019-12-26 11:52 | Outpatient (CLI) | payer OTHER, SELFPAY ==
[2019-12-26 13:59] LABS: Cholesterol 134 mg/dL (140-199); HDL Cholesterol 47 mg/dL (40-60); LDL Cholesterol Calculated 63 mg/dL (<100); Triglycerides 122 mg/dL (35-150)
== END ==
PROVIDERS: PCP Family Medicine; Referring Provider Family Medicine; Visit Provider Family Medicine
DX: E78.2 Mixed hyperlipidemia (principal)
CPT/HCPCS: 36415; 80061

== ENCOUNTER → 2020-01-26 11:30 | Outpatient (CLI) | payer OTHER, SELFPAY ==
[2020-01-26 12:03] LABS: Hemoglobin A1C% w Est Avg Glu 5.5 % (4.0-6.0)
[2020-01-26 12:15] LABS: Alanine Aminotransferase 16 IU/L (<35); Albumin 4.5 g/dL (3.5-5.0); Albumin Globulin Ratio 1.4 (1.0-2.8); Alkaline Phosphatase 98 U/L (38-126); Aspartate Aminotransferase 22 IU/L (14-36); BUN Creatinine Ratio 21.8 (6-22); Bilirubin Total 0.6 mg/dL (0.2-1.3); Blood Urea Nitrogen 24 mg/dL (7-17); Calcium 10.2 mg/dL (8.4-10.2); Carbon Dioxide 24 mmol/L (22-32); Chloride 104 mmol/L (98-107); Cholesterol 195 mg/dL (140-199); Estimated Glomerular Filt Rate 49.5 mL/min (>60); Globulin 3.3 g/dL (1.7-4.1); Glucose 152 mg/dL (80-110); HDL Cholesterol 97 mg/dL (40-60); HEMOLYSIS < 15 (0-50); LDL Cholesterol Calculated 78 mg/dL (<100); Potassium 4.1 mmol/L (3.4-5.1); Sodium 139 mmol/L (137-145); Total Protein 7.8 g/dL (6.3-8.2); Triglycerides 99 mg/dL (35-150)
== END ==
PROVIDERS: PCP Family Medicine; Referring Provider Internal Medicine Cardiovascular Disease; Visit Provider Internal Medicine Cardiovascular Disease
DX: I25.10 Atherosclerotic heart disease of native coronary artery without angina pectoris (principal)
CPT/HCPCS: 36415; 80053; 80061; 83036

== ENCOUNTER 2020-01-29 08:30 | Outpatient (RCR) | payer OTHER, SELFPAY | END 2020-05-06 07:32 | LOC: CAR 08:30 | PROVIDERS: PCP Family Medicine; Visit Provider Nurse Practitioner | DX: I21.3 ST elevation (STEMI) myocardial infarction of unspecified site (principal) | CPT/HCPCS: 93798 ==

== ENCOUNTER 2020-03-22 04:29 | Emergency (ER) | payer OTHER, SELFPAY ==
[2020-03-22 04:38] VITALS: BP 157/63; PULSE 64; RESP 14; O2SAT 96; BMI 28.7
--- NOTE | 2020-03-22 04:38 | DI.CT.S_ITS ---
PROCEDURE: CT HEAD/BRAIN WO CON INDICATIONS: altered mental status TECHNIQUE: Noncontrast 4.5 mm thick angled axial sections acquired from the foramen magnum to the vertex, with coronal and sagittal reformats. For radiation dose reduction, the following was used: automated exposure control, adjustment of mA and/or kV according to patient size. COMPARISON: [facility], CT, HEAD WITHOUT CONTRAST, 06/06/2017, 20:32. FINDINGS: Image quality: Excellent. CSF spaces: Basal cisterns are patent. No extra-axial fluid collections. Ventricles are normal in size and shape. Brain: No midline shift. No intracranial masses or hemorrhage. Lehman-white matter interface is normal. Skull and face: Calvarium and visualized facial bones are intact, without suspicious lesions. Sinuses: There is a mucus retention cyst or polyp in the right sphenoid sinus. The mastoids are clear. IMPRESSION: 1. No acute intracranial abnormalities. 2. Right sphenoid sinus disease. No significant discrepancy with the security shift manager radiology preliminary report. Dictated by: Roya Lawrence M.D. on 03/22/2020 at 8:04 Approved by: Roya Lawrence M.D. on 03/22/2020 at 8:05
[2020-03-22] MEDS: DEXTROSE 50 % IN WATER 25 GM/50 ML SYRINGE IV (04:50)
--- NOTE | 2020-03-22 04:51 | ED_ITS ---
HPI - Neuro Symptoms/Deficit General Chief Complaint: Neuro Symptoms/Deficit Stated Complaint: lethargic, confused, Time Seen by Provider: 03/22/20 04:30 Source: patient and family (Has been) Mode of arrival: Ambulatory Limitations: altered mental status History of Present Illness HPI Narrative: 69-year-old female [id number] diabetic here with her for evaluation of altered mental status. Patient's states that went to sleep last evening had her normal state health. He states that he got up a couple times during the night to go to the bathroom and he thought that she got up several times a go the bathroom was well. He states the last time that he got up to go to the bathroom he heard a ?thud and thought that she potentially hit her head on headboard of the bed. Reports that she was slow in answering questions. Was not acting correctly. He checked her blood pressure at home with systolic blood pressure of 90. He states that he felt like she was very confused. She was not slurring her words. They did arrive to the emergency department by private vehicle. On Anticoagulants: No Related Data Home Medications Medication Instructions Recorded Confirmed cinnamon bark 500 mg capsule 500 mg PO DAILY cap 08/12/18 02/03/20 magnesium oxide 400 mg (241.3 mg 400 mg PO DAILY tab 08/12/18 02/03/20 magnesium) tablet Ca gjwe-hfqwadldk-jcxr thistle 1 cap PO DAILY cap 04/17/19 02/03/20 metformin 1,000 mg PO BID 10/14/19 02/03/20 omeprazole 20 mg PO DAILY 10/14/19 02/03/20 aspirin 81 mg PO DAILY 11/13/19 02/03/20 ticagrelor [Brilinta] 90 mg PO BID 11/13/19 02/03/20 losartan 50 mg tablet 50 mg PO DAILY tab 11/24/19 02/03/20 clopidogrel 75 mg PO QAM 03/22/20 03/22/20 Previous Rx's Medication Instructions Recorded Test Strips - Freestyle 0 item SEE INSTRUCTIONS #2 07/20/17 glipizide 5 mg tablet, extended 5 mg PO DAILY #90 tab 08/18/19 release 24 hr cyclobenzaprine 10 mg PO TID PRN #10 tab 11/13/19 lidocaine 5 % topical ointment 1 applic TOP BID-TID PRN #35.44 12/18/19 gram MDD three applications rosuvastatin 20 mg tablet 20 mg PO DAILY #90 tab 12/26/19 tramadol 50 mg tablet 50 mg PO Q8H PRN #60 tab 01/06/20 trazodone 50 mg tablet 50 mg PO BEDTIME PRN #30 tab 01/06/20 gabapentin 600 mg tablet 600 mg PO .COMPLEX #60 tab 01/12/20 metoprolol succinate 25 mg 25 mg PO BID #60 tab 01/12/20 tablet,extended release 24 hr sertraline 50 mg tablet 50 mg PO DAILY #90 tab 02/10/20 Contour test strips #100 each 02/17/20 Allergies Allergy/AdvReac Type Severity Reaction Status Date / Time hexachlorophene Allergy Mild SWELLING Verified 03/22/20 04:43 [HEXACHLOROPHENE] AT SITE Iodinated Contrast Media Allergy Verified 03/22/20 04:43 codeine [CODEINE] AdvReac Mild N/V Verified 03/22/20 04:43 hydrochlorothiazide AdvReac Mild CRAMPS Verified 03/22/20 04:43 [HYDROCHLOROTHIAZIDE] Review of Systems Constitutional Constitutional: Denies fever(s) and Denies headache(s) ENT Ears, Nose, Mouth, and Throat: Denies headache(s) Cardiovascular Cardiovascular: Denies chest pain and Denies dyspnea Respiratory Respiratory: Denies dyspnea Gastrointestinal Gastrointestinal: Denies abdominal pain and Denies vomiting Musculoskeletal Musculoskeletal: Denies myalgias and Denies arthralgias Integumentary/Breasts Skin/Breast: Denies rash Comments: Has an reports patient was diaphoretic Neurologic Neurologic: Reports behavioral changes, Reports confusion, Denies headache(s) and Reports tremor(s) Psychiatric Psychiatric: Reports behavioral changes and Reports confusion Hematologic/Lymphatic Hematologic/Lymphatic: Denies easy bleeding and Denies easy bruising Patient History Medical History Diabetes mellitus (Chronic) GERD (gastroesophageal reflux disease) (Chronic) Hypertension (Chronic) Mixed hyperlipidemia (06/11/17) Social History marital status: household members: spouse Smoking Status: Never smoker alcohol intake: current substance use type: does not use Smoking Status: Never smoker alcohol intake frequency: 0-2 drinks per day Substance Use Type: does not use Exam Initial Vital Signs Initial Vital Signs: Vital Signs Pulse Rate 64 03/22/20 04:38 Respiratory Rate 14 03/22/20 04:38 Blood Pressure 157/63 H 03/22/20 04:38 Pulse Oximetry 96 03/22/20 04:38 Const General: cooperative and comfortable HENMT Head: normal to inspection and normocephalic Cardio Rate: regular rate Rhythm: regular rhythm Heart Sounds: murmur Pulses: radial pulses present GI Inspection: non-distended Palpation: soft Skin Lesions: no lesions Rashes: no rashes Neuro General: alert, awake, oriented (Oriented to person and place and year) and moves all extremities Speech: speech normal Extrem General: normal to inspection and capillary refill normal Psych Appearance: grossly normal and well kempt Scores GCS [place] coma scale eye opening: Spontaneous [place] coma scale verbal response: Orientated [place] coma scale motor response: Obey commands Mercedes coma scale total score: 15 Course Orders Ordered: ED Orders 03/22/20 04:38 CT head/brain wo con Stat 03/22/20 04:40 Complete Blood Count AUTO DIFF Stat Comprehensive Metabolic Panel Stat Ethanol (ETOH) Stat Lipase Stat Magnesium Stat Partial Thromboplastin Time Stat Phosphorous Stat Prothrombin Time INR Stat 03/22/20 04:44 EKG-12 Lead Stat Discontinued Medications Dextrose (D50w) 25 gm IV NOW ONE Stop: 03/22/20 04:45 Last Admin: 03/22/20 04:50 Dose: 25 gm Documented by: ALY Vital Signs Vital signs: Vital Signs - 8 hr 03/22/20 04:38 03/22/20 05:15 03/22/20 06:58 Pulse Rate 64 58 L 62 Respiratory Rate 14 14 16 Blood Pressure 157/63 H Blood Pressure [Left Arm] 157/86 H 167/83 H Pulse Oximetry 96 98 MDM - Neuro Symptoms/Deficit Lab Data Attestation: I reviewed the patient's lab results. Result diagrams: 03/22/20 04:40 03/22/20 04:40 Labs: Lab Results 03/22/20 03/22/20 03/22/20 Range/Units 04:40 04:40 04:40 WBC 8.3 (4.5-11.0) X10^3/uL RBC 4.01 (4.0-5.2) X10^6/uL Hgb 12.4 (12.0-16.0) g/dL Hct 38.4 (36-46) % MCV 95.7 (80-100) fL MCH 30.9 (26-34) PG MCHC 32.3 (30-36) % RDW 18.5 H (11.6-14.8) % Plt Count 313 (150-400) X10^3/uL Neut % (Auto) 74.3 (50-75) % Lymph % (Auto) 16.5 L (25-40) % Osborne % (Auto) 8.0 (3-14) % Eos % (Auto) 0.5 L (2-4) % Baso % (Auto) 0.7 (0-2) % Neut # (Auto) 6200 (9209-2318) /uL Lymph # (Auto) 1400 (9992-6716) /uL Osborne # (Auto) 700 (0-900) /uL Eos # (Auto) 0 (0-450) /uL Baso # (Auto) 100 (0-100) /uL PT 9.3 L (10.1-12.7) SECONDS INR 0.8 L (0.9-1.3) APTT 34 (26.4-36.2) SECONDS Sodium 139 (137-145) mmol/L Potassium 3.4 (3.4-5.1) mmol/L Chloride 103 (98-107) mmol/L Carbon Dioxide 24 (22-32) mmol/L BUN 22 H (7-17) mg/dL Creatinine 0.95 (0.52-1.04) mg/dL Estimated GFR 58.7 L (>60) mL/min BUN/Creatinine Ratio 23.2 H (6-22) Glucose 33 L* (80-110) mg/dL Calcium 10.2 (8.4-10.2) mg/dL Phosphorus (2.8-4.1) mg/dL Magnesium (1.6-2.3) mg/dL Total Bilirubin 0.2 (0.2-1.3) mg/dL AST 24 (14-36) IU/L ALT 14 (<35) IU/L Alkaline Phosphatase 77 (38-126) U/L Ammonia Total Protein 7.9 (6.3-8.2) g/dL Albumin 4.7 (3.5-5.0) g/dL Globulin 3.2 (1.7-4.1) g/dL Albumin/Globulin Ratio 1.5 (1.0-2.8) Lipase 169 (23-300) U/L Ethyl Alcohol 64 H ( - 10) mg/dL 03/22/20 03/22/20 Range/Units 04:40 Unknown WBC (4.5-11.0) X10^3/uL RBC (4.0-5.2) X10^6/uL Hgb (12.0-16.0) g/dL Hct (36-46) % MCV (80-100) fL MCH (26-34) PG MCHC (30-36) % RDW (11.6-14.8) % Plt Count (150-400) X10^3/uL Neut % (Auto) (50-75) % Lymph % (Auto) (25-40) % Osborne % (Auto) (3-14) % Eos % (Auto) (2-4) % Baso % (Auto) (0-2) % Neut # (Auto) (5753-0503) /uL Lymph # (Auto) (2743-2858) /uL Osborne # (Auto) (0-900) /uL Eos # (Auto) (0-450) /uL Baso # (Auto) (0-100) /uL PT (10.1-12.7) SECONDS INR (0.9-1.3) APTT (26.4-36.2) SECONDS Sodium (137-145) mmol/L Potassium (3.4-5.1) mmol/L Chloride (98-107) mmol/L Carbon Dioxide (22-32) mmol/L BUN (7-17) mg/dL Creatinine (0.52-1.04) mg/dL Estimated GFR (>60) mL/min BUN/Creatinine Ratio (6-22) Glucose (80-110) mg/dL Calcium (8.4-10.2) mg/dL Phosphorus 4.6 H (2.8-4.1) mg/dL Magnesium 2.0 (1.6-2.3) mg/dL Total Bilirubin (0.2-1.3) mg/dL AST (14-36) IU/L ALT (<35) IU/L Alkaline Phosphatase (38-126) U/L Ammonia Cancelled Total Protein (6.3-8.2) g/dL Albumin (3.5-5.0) g/dL Globulin (1.7-4.1) g/dL Albumin/Globulin Ratio (1.0-2.8) Lipase (23-300) U/L Ethyl Alcohol ( - 10) mg/dL Point of Care Testing Glucose POC [address] scan - head: Radiologist's Impression: No acute intracranial abnormality Sphenoid sinus disease ECG Data Attestation: I personally reviewed and interpreted this ECG as follows: Prior ECG tracings: not available for review Interpretation: Sinus rhythm Ventricular rate is 61 Normal axis Normal QRS Normal QTC No ST T wave changes MDM Narrative Medical decision making narrative: Her point of care glucose upon arrival was less than 22. This was confirmed by a lab glucose in the low 30s. She was given juice to drink and also IV glucose. The rest of her altered mental status workup was unremarkable. Her symptoms did improve with improvement of her blood sugar. She was given more to eat. Her blood sugar maintained an appropriate level. She reported that she was back to normal. We did discuss checking her blood sugars at home regularly over the next couple hours. I have her skip her morning dose of metformin. She will started again this evening as directed. She was given return precautions and follow-up instructions. She expressed understanding and agreement. Discharge Plan Departure Patient Disposition: Home Clinical Impression: Hypoglycemia Instructions: DI for Hypoglycemia Activity Restrictions/Additional Instructions: I do recommend that you skip your morning dose of metformin. This evening you can take it again as previously directed. I also recommend that over the next couple hours she checked your blood sugar on a regular basis. Contact your primary provider for follow-up. Return to the emergency department for any new or worsening symptoms Prescriptions: No Action losartan 50 mg tablet 50 mg PO DAILY RF: 0 trazodone 50 mg tablet 50 mg PO BEDTIME PRN (Reason: sleep) Qty: 30 RF: 0 Liver-Kidney Cleanser capsule 1 cap PO DAILY RF: 0 Test Strips - Freestyle 0 item SEE INSTRUCTIONS Qty: 2 RF: 1 glipizide 5 mg tablet extended release 24hr 5 mg PO DAILY Qty: 90 RF: 3 lidocaine 5 % ointment 1 applic TOP BID-TID MDD three applications PRN (Reason: lumbar pain) Qty: 35.44 RF: 5 rosuvastatin 20 mg tablet 20 mg PO DAILY Qty: 90 RF: 3 tramadol 50 mg tablet 50 mg PO Q8H PRN (Reason: pain) Qty: 60 RF: 2 metoprolol succinate 25 mg tablet extended release 24 hr 25 mg PO BID Qty: 60 RF: 11 gabapentin 600 mg tablet 600 mg PO .COMPLEX Qty: 60 RF: 2 sertraline [Zoloft] 50 mg tablet 50 mg PO DAILY Qty: 90 RF: 1 (DME) Contour test strips Qty: 100 RF: 11 magnesium oxide 400 mg tablet 400 mg PO DAILY RF: 0 cinnamon bark [Cinnamon] 500 mg capsule 500 mg PO DAILY RF: 0 metformin 1,000 mg tablet 1,000 mg PO BID RF: 0 omeprazole 20 MG capsule,delayed release(DR/EC) 20 mg PO DAILY RF: 0 Brilinta 90 mg tablet 90 mg PO BID RF: 0 aspirin 81 mg Tablet,Delayed Release (Dr/Ec) 81 mg PO DAILY RF: 0 cyclobenzaprine 10 mg tablet 10 mg PO TID PRN (Reason: muscle spasm) Qty: 10 RF: 0 clopidogrel 75 mg tablet 75 mg PO QAM RF: 0 Referrals: Nahid Tripp MD [Primary Care Provider] -
[2020-03-22 04:53] LABS: Add Manual Diff / Slide Review NO; Basophils Absolute Auto 100 /uL (0-100); Basophils Percent Auto 0.7 % (0-2); Eosinophils Absolute Auto 0 /uL (0-450); Eosinophils Percent Auto 0.5 % (2-4); Hematocrit 38.4 % (36-46); Hemoglobin 12.4 g/dL (12.0-16.0); Lymphocytes Absolute Auto 1400 /uL (1100-4500); Lymphocytes Percent Auto 16.5 % (25-40); Mean Corpuscular HGB Conc 32.3 % (30-36); Mean Corpuscular Hemoglobin 30.9 PG (26-34); Mean Corpuscular Volume 95.7 fL (80-100); Monocytes Absolute Auto 700 /uL (0-900); Neutrophils Absolute Auto 6200 /uL (1500-7000); Neutrophils Percent Auto 74.3 % (50-75); Platelet Count 313 X10^3/uL (150-400); Red Blood Cell Count 4.01 X10^6/uL (4.0-5.2); Red Cell Distribution Width 18.5 % (11.6-14.8); White Blood Cell Count 8.3 X10^3/uL (4.5-11.0)
[2020-03-22 04:56] LABS: INR 0.8 (0.9-1.3); Prothrombin Time 9.3 SECONDS (10.1-12.7)
[2020-03-22 04:59] LABS: PTT Partial Thromboplastin Tim 34 SECONDS (26.4-36.2)
[2020-03-22 05:02] LABS: Alanine Aminotransferase 14 IU/L (<35); Albumin 4.7 g/dL (3.5-5.0); Albumin Globulin Ratio 1.5 (1.0-2.8); Alkaline Phosphatase 77 U/L (38-126); Aspartate Aminotransferase 24 IU/L (14-36); BUN Creatinine Ratio 23.2 (6-22); Bilirubin Total 0.2 mg/dL (0.2-1.3); Blood Urea Nitrogen 22 mg/dL (7-17); Calcium 10.2 mg/dL (8.4-10.2); Carbon Dioxide 24 mmol/L (22-32); Chloride 103 mmol/L (98-107); Estimated Glomerular Filt Rate 58.7 mL/min (>60); Ethanol (ETOH) 64 mg/dL; Globulin 3.2 g/dL (1.7-4.1); HEMOLYSIS < 15 (0-50); Lipase 169 U/L (23-300); Potassium 3.4 mmol/L (3.4-5.1); Sodium 139 mmol/L (137-145); Total Protein 7.9 g/dL (6.3-8.2)
[2020-03-22 05:03] LABS: Phosphorous 4.6 mg/dL (2.8-4.1)
--- NOTE | 2020-03-22 05:10 | PC.NURSE ---
Patient more alert after d50. Patient able to rapidly identify the numbers of fingers held up in front of her. She made a small joke about the d50 spilled on her arm and stretcher by this nurse. Patient appears to be more like herself.
[2020-03-22 05:11] LABS: Glucose 33 mg/dL (80-110)
[2020-03-22 05:15] VITALS: BP 157/86; PULSE 58; RESP 14
[2020-03-22 06:58] VITALS: BP 167/83; PULSE 62; RESP 16; O2SAT 98
== END 2020-03-22 07:38 | disposition home or self-care (01) ==
PROVIDERS: Emergency Provider Emergency Medicine; PCP Family Medicine
DX: E11.649 Type 2 diabetes mellitus with hypoglycemia without coma (principal)
CPT/HCPCS: 36415; 70450; 80053; 80320; 82962; 83690; 83735; 84100; 85025; 85610; 85730; 93005; 99284

== ENCOUNTER → 2020-11-26 09:13 | Outpatient (CLI) | payer OTHER, SELFPAY ==
[2020-11-26] MEDS: COVID-19 VACC(MODERNA-1)/PF 100 MCG/0.5 ML VIAL IM (09:22)
== END ==
PROVIDERS: PCP Family Medicine; Visit Provider Internal Medicine
DX: Z23 Encounter for immunization (principal)
CPT/HCPCS: 0011A; 91301

== ENCOUNTER → 2020-12-23 09:23 | Outpatient (CLI) | payer OTHER, SELFPAY ==
[2020-12-23] MEDS: COVID-19 VACC #2, MRNA(MOD) 100 MCG/0.5 ML VIAL IM (09:29)
== END ==
PROVIDERS: PCP Family Medicine; Visit Provider Internal Medicine
DX: Z23 Encounter for immunization (principal)
CPT/HCPCS: 0012A; 91301

== ENCOUNTER → 2021-11-11 12:49 | Outpatient (CLI) | payer MEDICARE, SELFPAY ==
[2021-11-11 13:59] LABS: COVID19 -Nasal RAPID Negative (Negative)
== END ==
PROVIDERS: PCP Family Medicine; Visit Provider Physician Assistant
DX: R09.89 Other specified symptoms and signs involving the circulatory and respiratory systems (principal); R51.9 Headache, unspecified; R09.81 Nasal congestion
CPT/HCPCS: 87635

== ENCOUNTER → 2022-07-20 09:27 | Outpatient (CLI) | payer MEDICARE, OTHER, SELFPAY ==
--- NOTE | 2022-07-20 09:31 | DI.MG.S_ITS ---
BILATERAL DIGITAL SCREENING MAMMOGRAM 3D/2D WITH CAD: 07/20/2022 CLINICAL: Routine screening. Comparison is made to exams dated: 05/23/2019 mammogram, 02/08/2018 mammogram, and 01/19/2017 mammogram - [facility]. There are scattered areas of fibroglandular density in both breasts (category b / 25%-50% glandular tissue). Current study was also evaluated with a Computer Aided Detection (CAD) system. No significant masses, calcifications, or other findings are seen in either breast. There has been no significant interval change. IMPRESSION: NEGATIVE There is no mammographic evidence of malignancy. A 1 year screening mammogram is recommended. Based on the Tyrer Cuzick model (a risk assessment model) the patient's lifetime risk is 4.3% and her 10 year risk is 2.5%. According to the ACR, ACS, and NCCN guidelines, an annual breast MRI exam along with mammogram is recommended if the patient's lifetime risk is 20% or greater. This exam was interpreted at Station ID: [id number]. NOTE: For mammograms, a report in lay terms will be sent to the patient. Approximately 15% of breast malignancies will not be visualized mammographically. In the management of a palpable breast mass, a negative mammogram must not discourage biopsy of a clinically suspicious lesion. Electronically Signed By: Cathy garvin/gerard:07/20/2022 11:13:50 letter sent: Normal Exam ACR BI-RADS Category 1: Negative 3341F
== END ==
PROVIDERS: PCP Family Medicine; Referring Provider Family Medicine; Visit Provider Family Medicine
DX: Z12.31 Encounter for screening mammogram for malignant neoplasm of breast (principal)
CPT/HCPCS: 77063; 77067

== ENCOUNTER → 2022-12-27 11:09 | Outpatient (CLI) | payer MEDICARE, OTHER, SELFPAY ==
--- NOTE | 2022-12-27 | DI.MRI.S_ITS ---
PROCEDURE: MR ANKLE RT WO CON INDICATIONS: ANTERIOR TIBIAL SYNDROME TECHNIQUE: Noncontrast sagittal T1 spin echo and T2 fast spin echo with fat saturation, axial proton density fast spin echo and T2 fast spin echo with fat saturation, coronal T1 spin echo and T2 fast spin echo with fat saturation through the ankle/hindfoot. COMPARISON: None. FINDINGS: Image quality: Excellent. Bones and joints: Midfoot and hindfoot joint osteoarthritic changes are seen with joint space narrowing, subchondral sclerosis and marginal osteophyte formation. No bone marrow contusions or fractures. No hindfoot coalitions. No osteochondral injuries of the talar dome. No pathologic joint effusions. Well-defined plantar and dorsal calcaneal enthesophytes are seen. Medial structures: Fiducial marker placed over medial aspect of midfoot at the level of navicular bone is seen. The posterior tibialis is thickened at the level of talonavicular joint and navicular bone. The flexor digitorum longus, and flexor hallucis longus tendons are intact. The posterior tibial neurovascular bundle appears normal within the tarsal tunnel, without extrinsic mass effect. The deep layer (anterior and posterior tibiotalar ligaments) and superficial layer (tibionavicular, tibiospring, and tibiocalcaneal ligaments) of the deltoid ligament appear normal. The spring ligament components (superomedial calcaneonavicular, medioplantar oblique calcaneonavicular, and inferoplantar longitudinal ligaments) are intact. Lateral structures: The anterior talofibular, calcaneofibular, and posterior talofibular ligaments appear intact. More superiorly, the anterior and posterior tibiofibular ligaments appear intact, as is the intermalleolar ligament. The tibiofibular syndesmosis is normal in width at 2 mm or less. The peroneus longus and brevis tendons demonstrate normal location and morphology. Adjacent bony peroneal tubercle and retrotrochlear prominence are normal in size. The sinus tarsi demonstrates normal fatty signal, without edema, fibrosis, or cyst formation. Visualized sinus tarsi components (cervical ligament, interosseous talocalcaneal ligament, roots of the inferior extensor retinaculum) appear normal. The calcaneonavicular and calcaneocuboid components of the bifurcate ligament appear intact. The dorsal calcaneocuboid ligament appears intact. Anterior structures: The tibialis anterior, extensor hallucis longus, and extensor digitorum longus tendons appear intact. No fluid distending extensor tendon sheath is seen . The dorsal talonavicular ligament appears intact. Posterior and plantar structures: Achilles tendon is intact. Medial and lateral bands of the plantar fascia are of normal thickness. No abductor digiti quinti muscle atrophy to suggest [facility] neuropathy. Significant soft tissue edema along anterior aspect of Achilles tendon is seen. IMPRESSION: 1. No fluid distension of extensor tendon sheath is noted to suggest tenosynovitis. Extensor tendons are intact. 2. Suggestion of tendinosis involving posterior tibialis tendon at the level of talonavicular joint and navicular bone. 3. Tnae-el-obcfmobj midfoot and hindfoot joint osteoarthritis. No fracture or dislocation. No osteochondral injuries of talar dome. Small plantar and dorsal calcaneal enthesophytes. 4. Nonspecific soft tissue edema along anterior aspect of Achilles tendon without Achilles tendon thickening or rupture. 5. Suggestion of tendinosis and low-grade Dictated by: Aleksander Harmon M.D. on 12/27/2022 at 13:23 Approved by: Aleksander Harmon M.D. on 12/27/2022 at 15:40
== END ==
PROVIDERS: PCP Family Medicine; Referring Provider Podiatrist; Visit Provider Podiatrist
DX: M76.811 Anterior tibial syndrome, right leg (principal); M19.071 Primary osteoarthritis, right ankle and foot; M77.31 Calcaneal spur, right foot
CPT/HCPCS: 73721

== ENCOUNTER → 2023-04-11 10:17 | Outpatient (CLI) | payer MEDICARE, OTHER, SELFPAY ==
[2023-04-11 11:18] LABS: Add Manual Diff / Slide Review NO; Basophils Absolute Auto 100 /uL (0-100); Basophils Percent Auto 1.1 % (0-2); Eosinophils Absolute Auto 400 /uL (0-450); Eosinophils Percent Auto 6.3 % (2-4); Hematocrit 35.6 % (36-46); Hemoglobin 11.8 g/dL (12.0-16.0); Lymphocytes Absolute Auto 1700 /uL (1100-4500); Lymphocytes Percent Auto 30.2 % (25-40); Mean Corpuscular HGB Conc 33.2 % (30-36); Mean Corpuscular Hemoglobin 33.1 PG (26-34); Mean Corpuscular Volume 99.7 fL (80-100); Monocytes Absolute Auto 400 /uL (0-900); Monocytes Percent Auto 7.8 % (3-14); Neutrophils Absolute Auto 3200 /uL (1500-7000); Neutrophils Percent Auto 54.6 % (50-75); Platelet Count 257 X10^3/uL (150-400); Red Blood Cell Count 3.57 X10^6/uL (4.0-5.2); Red Cell Distribution Width 15.6 % (11.6-14.8); White Blood Cell Count 5.8 X10^3/uL (4.5-11.0)
[2023-04-11 11:54] LABS: Alanine Aminotransferase 25 IU/L (<35); Albumin Globulin Ratio 1.6 (1.0-2.8); Alkaline Phosphatase 72 U/L (38-126); Aspartate Aminotransferase 32 IU/L (14-36); BUN Creatinine Ratio 18.8 (6-22); Bilirubin Total 0.3 mg/dL (0.2-1.3); Blood Urea Nitrogen 24 mg/dL (7-17); Calcium 9.5 mg/dL (8.4-10.2); Carbon Dioxide 24 mmol/L (22-32); Chloride 102 mmol/L (98-107); Cholesterol 162 mg/dL (140-199); Estimated Glomerular Filt Rate 45 mL/min (>60); Globulin 2.5 g/dL (1.7-4.1); Glucose 96 mg/dL (80-110); HDL Cholesterol 78 mg/dL (40-60); HEMOLYSIS < 15 (0-50); LDL Cholesterol Calculated 57 mg/dL (<100); Potassium 4.5 mmol/L (3.4-5.1); Sodium 136 mmol/L (137-145); Total Protein 6.5 g/dL (6.3-8.2); Triglycerides 135 mg/dL (35-150)
[2023-04-13 23:08] LABS: x Labcorp Estim. Avg Glu (eAG) 114 mg/dL (.); x Labcorp Hemoglobin A1c 5.6 % (4.8-5.6)
== END ==
PROVIDERS: PCP Family Medicine; Referring Provider Family Medicine; Visit Provider Family Medicine
DX: E11.9 Type 2 diabetes mellitus without complications (principal); E78.2 Mixed hyperlipidemia; I10 Essential (primary) hypertension
CPT/HCPCS: 36415; 80053; 80061; 82043; 82570; 83036; 85025

== ENCOUNTER → 2023-04-11 16:41 | Outpatient (CLI) | payer MEDICARE, OTHER, SELFPAY ==
[2023-04-11 18:01] LABS: Creatinine Urine Random 240.1 mg/dL
[2023-04-11 18:06] LABS: Microalbumin Urine Random < 0.6 mg/dL (0-1.6)
== END ==
PROVIDERS: PCP Family Medicine; Referring Provider Family Medicine; Visit Provider Family Medicine
DX: E11.9 Type 2 diabetes mellitus without complications (principal); E78.2 Mixed hyperlipidemia; I10 Essential (primary) hypertension
CPT/HCPCS: 82043; 82570

== ENCOUNTER → 2023-05-21 12:32 | Outpatient (CLI) | payer MEDICARE, OTHER, SELFPAY ==
[2023-05-23 16:08] LABS: Fecal Immunochemical Test Negative (Negative)
== END ==
PROVIDERS: PCP Family Medicine; Referring Provider Family Medicine; Visit Provider Family Medicine
DX: Z12.11 Encounter for screening for malignant neoplasm of colon (principal)
CPT/HCPCS: 82274

== ENCOUNTER → 2023-09-13 11:07 | Outpatient (CLI) | payer MEDICARE, OTHER, SELFPAY ==
--- NOTE | 2023-09-13 | DI.MG.S_ITS ---
BILATERAL DIGITAL SCREENING MAMMOGRAM 3D/2D WITH CAD: 09/13/2023 CLINICAL: Routine screening. Comparison is made to exams dated: 07/20/2022 mammogram, 05/23/2019 mammogram, and 02/08/2018 mammogram - [facility]. There are scattered areas of fibroglandular density in both breasts (category b / 25%-50% glandular tissue). Current study was also evaluated with a Computer Aided Detection (CAD) system. No significant masses, calcifications, or other findings are seen in either breast. There has been no significant interval change. IMPRESSION: NEGATIVE There is no mammographic evidence of malignancy. A 1 year screening mammogram is recommended. Based on the Tyrer Cuzick model (a risk assessment model) the patient's lifetime risk is 2.7% and her 10 year risk is 1.8%. According to the ACR, ACS, and NCCN guidelines, an annual breast MRI exam along with mammogram is recommended if the patient's lifetime risk is 20% or greater. This exam was interpreted at Station ID: [id number]. NOTE: For mammograms, a report in lay terms will be sent to the patient. Approximately 15% of breast malignancies will not be visualized mammographically. In the management of a palpable breast mass, a negative mammogram must not discourage biopsy of a clinically suspicious lesion. Electronically Signed By: Brandon pereira/gerard:09/13/2023 16:35:47 letter sent: Normal Exam ACR BI-RADS Category 1: Negative 3341F
== END ==
PROVIDERS: PCP Family Medicine; Referring Provider Family Medicine; Visit Provider Family Medicine
DX: Z12.31 Encounter for screening mammogram for malignant neoplasm of breast (principal)
CPT/HCPCS: 77063; 77067

== ENCOUNTER 2024-03-07 13:10 | Emergency (ER) | payer MEDICARE, OTHER, SELFPAY ==
[2024-03-07 13:13] VITALS: BP 186/79; PULSE 58; RESP 18; TEMP 36.6; O2SAT 98; BMI 30.4
--- NOTE | 2024-03-07 13:33 | ED_ITS ---
HPI - Wound/Laceration <Sharmin Sahu PA-C - Last Filed: 03/07/24 14:57> General Chief Complaint: Wound/Laceration Stated Complaint: fall, knee laceration, takes blood thinners Time Seen by Provider: 03/07/24 13:32 Source: patient Mode of arrival: Ambulatory History of Present Illness HPI narrative: 73-year-old female presents today status post fall. She was cleaning out her house and garage and anticipation of ?free dump day? and tripped over a log striking her right knee. She denies any precipitating events. Her chief complaint is anterior right knee pain. She states her tetanus was 9 years ago, she does take Plavix and has an intolerance to codeine. No treatment tried. She may have struck her right forearm as well but she is denying any elbow pain wrist pain hand pain or other complaints. All other systems are reviewed and are negative. Related Data Home Medications Medication Instructions Recorded Confirmed magnesium oxide 400 mg (241.3 mg 400 mg PO DAILY 08/12/18 07/05/20 magnesium) tablet Ca ljxy-zrrqihqya-vfsl thistle 1 cap PO BID 04/12/23 04/12/23 capsule (Liver-Kidney Cleanser capsule) cholecalciferol (vitamin D3) 50 50 mcg PO DAILY 04/12/23 04/12/23 mcg (2,000 unit) capsule cinnamon bark 500 mg capsule 500 mg PO BID 04/12/23 04/12/23 (Cinnamon) Previous Rx's Medication Instructions Recorded diclofenac sodium 1 % topical gel 4 g topical BID PRN arthritis 60 02/07/21 days #100 grams trazodone 50 mg tablet 50 mg PO BEDTIME PRN sleep #30 tabs 04/21/21 aspirin 81 mg tablet,delayed 81 mg PO DAILY #90 tabs 09/13/22 release gabapentin 300 mg capsule 300 mg PO BEDTIME #90 caps 05/15/23 metformin 1,000 mg tablet 1,000 mg PO BID #180 tabs 05/15/23 omeprazole 20 mg capsule,delayed 20 mg PO DAILY #90 caps 05/21/23 release sertraline 50 mg tablet (Zoloft) 50 mg PO DAILY #90 tabs 06/04/23 clopidogrel 75 mg tablet 75 mg PO DAILY #90 tabs 06/15/23 glipizide 2.5 mg tablet, extended 2.5 mg PO DAILY #90 tabs 06/15/23 release 24 hr losartan 50 mg tablet 50 mg PO DAILY #90 tabs 06/15/23 metoprolol succinate 25 mg 25 mg PO BID #180 tabs 06/15/23 tablet,extended release 24 hr rosuvastatin 20 mg tablet 20 mg PO DAILY #90 tabs 06/15/23 Contour Next test strips #100 ea 09/06/23 tramadol 50 mg tablet 50 mg PO BID PRN pain #30 tabs 12/10/23 Allergies Allergy/AdvReac Type Severity Reaction Status Date / Time hexachlorophene Allergy Mild SWELLING Verified 04/12/23 14:42 [HEXACHLOROPHENE] AT SITE Iodinated Contrast Media Allergy Verified 04/12/23 14:42 codeine [CODEINE] AdvReac Mild N/V Verified 04/12/23 14:42 hydrochlorothiazide AdvReac Mild CRAMPS Verified 04/12/23 14:42 [HYDROCHLOROTHIAZIDE] Review of Systems <Sharmin Sahu PA-C - Last Filed: 03/07/24 14:57> Review of Systems Narrative: SEE HPI Patient History <Sharmin Sahu PA-C - Last Filed: 03/07/24 14:57> Medical History (Updated 03/07/24 @ 13:40 by Sharmin Sahu PA-C) GERD (gastroesophageal reflux disease) Diabetes mellitus Hypertension Mixed hyperlipidemia (06/11/17) Surgical History Anesthesia History of knee replacement Status post hysterectomy Family History Father Stroke Mother Lung cancer Social History marital status: household members: spouse Smoking Status: Never smoker alcohol intake: current substance use type: does not use Smoking Status: Never smoker alcohol intake frequency: 0-2 drinks per day Substance Use Type: does not use Exam <Sharmin Sahu PA-C - Last Filed: 03/07/24 14:57> Initial Vital Signs Initial Vital Signs: Vital Signs Temperature 98 F 03/07/24 13:13 Pulse Rate 58 L 03/07/24 13:13 Respiratory Rate 18 03/07/24 13:13 Blood Pressure 186/79 H 03/07/24 13:13 Pulse Oximetry 98 03/07/24 13:13 Oxygen Delivery Method Room Air 03/07/24 13:13 Vital signs reviewed and are normal except for elevated blood pressure reading today. Const Other: Ambulatory, currently seated in a chair in no distress, smiling and pleasantly conversing. [facility] Other: Atraumatic exam normocephalic. Eyes Other: Pupils are PERRLA. Neck Other: Full active range of motion to the neck, no pain elicited, no focal bony midline tenderness. Resp Other: Lung sounds are normal. Cardio Other: Regular rate and rhythm. GI Other: Atraumatic, soft nontender. Back/Spine/Pelvis Other: Atraumatic. No focal tenderness. Skin Other: Intact unless otherwise noted in musculoskeletal exam. Neuro Other: Grossly intact, no focal neuro deficits. Extrem Other: Full weightbear of lower extremities, ambulates without difficulty, she has a linear laceration to her right anterior knee just overlying the patella. It measures approximately 5 cm, subcutaneous fat is showing. Two small purple contusions to the posterior proximal forearm just inferior to her elbow. She has full active range of motion to her upper extremities no issues identified with the elbow, wrist, hand, <Deyanira Roche DO - Last Filed: 03/13/24 20:57> Initial Vital Signs Initial Vital Signs: Vital Signs Temperature 98 F 03/07/24 13:13 Pulse Rate 58 L 03/07/24 13:13 Respiratory Rate 18 03/07/24 13:13 Blood Pressure 186/79 H 03/07/24 13:13 Pulse Oximetry 98 03/07/24 13:13 Oxygen Delivery Method Room Air 03/07/24 13:13 Procedures <KIAH Michel Last Filed: 03/07/24 14:57> Laceration Repair Laceration 1: Time of procedure: 14:51 Site: lower extremity (right anterior knee) Side (If applicable): right Size (cm): 8 Description: linear Depth: simple, single layer Local Anesthetic: lidocaine 1% (5 ml) Amount of anesthesia used (mL): 5 Pre-repair: wound explored, irrigated extensively and deep structures intact Skin layer closed with: nylon Skin layer suture size: 4-0 Number of sutures: 10 Technique: simple, interrupted Course <KIAH Michel Last Filed: 03/07/24 14:57> Course Course Narrative: Initial examination, radiographs obtained, local anesthetic infiltrated, repaired, reexamined hemostasis achieved with the wound closure and she had no adverse events. Orders Ordered: Discontinued Medications Lidocaine HCl (Lidocaine 1% 20 Ml) 20 ml INJ INTRA-OP ONE Stop: 03/07/24 13:43 Last Admin: 03/07/24 14:27 Dose: 20 ml Documented By: NL Vital Signs Vital signs: Vital Signs - 8 hr 03/07/24 13:13 Temperature 98 F Pulse Rate 58 L Respiratory Rate 18 Blood Pressure 186/79 H Pulse Oximetry 98 Oxygen Delivery Method Room Air <Deyanira Roche DO - Last Filed: 03/13/24 20:57> Orders Ordered: Discontinued Medications Lidocaine HCl (Lidocaine 1% 20 Ml) 20 ml INJ INTRA-OP ONE Stop: 03/07/24 13:43 Last Admin: 03/07/24 14:27 Dose: 20 ml Documented By: NL Vital Signs Vital signs: Vital Signs - 8 hr 03/07/24 13:13 Temperature 98 F Pulse Rate 58 L Respiratory Rate 18 Blood Pressure 186/79 H Pulse Oximetry 98 Oxygen Delivery Method Room Air MDM - Wound/Laceration <Sharmin Sahu PA-C - Last Filed: 03/07/24 14:57> Imaging Data Extremity x-ray #1: My Impression: No acute bony abnormality or gas Radiologist's Impression: PROCEDURE: XR KNEE RT 3V INDICATIONS: fall direct impact RIGHT knee with laceration TECHNIQUE: 3 views of the knee were acquired. COMPARISON: [facility], CR, XR KNEE 4+ VIEWS RIGHT, 05/09/2021, 11:12. [facility], CR, KNEE 3V RIGHT, 11/07/2012, 10:06. FINDINGS: Bones: No fractures or dislocations. No suspicious bony lesions. Stable lateral knee hemiarthroplasty. Moderate degenerative narrowing is present within the medial compartment, unchanged. Hardware is intact without hardware fracture or periprosthetic lucency to suggest loosening. Alignment is stable. Soft tissues: No joint effusion. No suspicious soft tissue calcifications. IMPRESSION: No acute bony abnormality or significant effusion. Dictated by: Sherita Allan M.D. on 03/07/2024 at 14:24 Approved by: Sherita Allan M.D. on 03/07/2024 at 14:25 MDM Narrative Medical decision making narrative: Simple slip trip and fall on her right knee, no evidence any fracture, she did sustain a full-thickness laceration overlying the patella and it was repaired without incident. She will do wound care monitor for any signs of infection including increased swelling, redness, fever, posterior knee pain or swelling or any other concerns. She does also have an associated simple abrasion and contusion she can certainly use ice. She will be traveling I have asked her to have these sutures removed in about 14 days or so. They can try to remove them on their own as her has done this before from his time in the [place]. Red flag warning signs reviewed in detail. Discharge Plan Departure Patient Disposition: Home Clinical Impression: Laceration of knee Qualifiers: Encounter type: initial encounter Laterality: right Qualified Code(s): S81.011A - Laceration without foreign body, right knee, initial encounter Instructions: DI for Laceration Repair Activity Restrictions/Additional Instructions: Please keep this dressing intact and dry for the next 24-48 hours. Following that you may do some gentle cleansing of the area but avoid submersion in water and prune skin. Keep covered and dry and change daily with these cleanses. Sutures should come out in about 14 days or so. You can certainly take the mount on your own but start from the edges from the bottom part near the martinez is where you would snip and pull from the top, do not cut the not and do not leave any nylon material behind. You may certainly seek medical attention in [facility] [place] at any urgent Care. Please seek medical attention immediately if you see increased swelling, redness, drainage, odor, fever, knee pain or joint pain or any other concerns. Try to keep elevated today. Keep her activity light to allow the clot formation in the laceration.. Prescriptions: No Action Liver-Kidney Cleanser Capsule 1 cap PO BID cholecalciferol (vitamin D3) 50 mcg (2,000 unit) capsule 50 mcg PO DAILY diclofenac sodium 1 % gel 4 g TOP BID PRN (Reason: arthritis) 60 Days Qty: 100 2RF trazodone 50 mg tablet 50 mg PO BEDTIME PRN (Reason: sleep) Qty: 30 2RF aspirin 81 mg tablet,delayed release (DR/EC) 81 mg PO DAILY Qty: 90 3RF gabapentin 300 mg capsule 300 mg PO BEDTIME Qty: 90 3RF metformin 1,000 mg tablet 1,000 mg PO BID Qty: 180 3RF omeprazole 20 mg capsule,delayed release(DR/EC) 20 mg PO DAILY Qty: 90 3RF sertraline [Zoloft] 50 mg tablet 50 mg PO DAILY Qty: 90 3RF glipizide 2.5 mg tablet extended release 24hr 2.5 mg PO DAILY Qty: 90 3RF metoprolol succinate 25 mg tablet extended release 24 hr 25 mg PO BID Qty: 180 3RF rosuvastatin 20 mg tablet 20 mg PO DAILY Qty: 90 3RF clopidogrel 75 mg tablet 75 mg PO DAILY Qty: 90 3RF losartan 50 mg tablet 50 mg PO DAILY Qty: 90 2RF (DME) Contour Next test strips Qty: 100 11RF Rx Instructions: As directed up to 4 times daily for control of blood sugar. Testing increased d/t hypoglycemia tramadol 50 mg tablet 50 mg PO BID PRN (Reason: pain) Qty: 30 0RF magnesium oxide 400 mg tablet 400 mg PO DAILY cinnamon bark [Cinnamon] 500 mg capsule 500 mg PO BID Referrals: Nahid Tripp MD [Primary Care Provider] - Stand Alone Forms: Patient Portal/API ED Sign-out <Deyanira Roche DO - Last Filed: 03/13/24 20:57> Cosign ED Attending Cosruelature Attestation: I was available for consultation.
--- NOTE | 2024-03-07 13:40 | DI.RAD.S_ITS ---
PROCEDURE: XR KNEE RT 3V INDICATIONS: fall direct impact RIGHT knee with laceration TECHNIQUE: 3 views of the knee were acquired. COMPARISON: [facility], CR, XR KNEE 4+ VIEWS RIGHT, 05/09/2021, 11:12. [facility], CR, KNEE 3V RIGHT, 11/07/2012, 10:06. FINDINGS: Bones: No fractures or dislocations. No suspicious bony lesions. Stable lateral knee hemiarthroplasty. Moderate degenerative narrowing is present within the medial compartment, unchanged. Hardware is intact without hardware fracture or periprosthetic lucency to suggest loosening. Alignment is stable. Soft tissues: No joint effusion. No suspicious soft tissue calcifications. IMPRESSION: No acute bony abnormality or significant effusion. Dictated by: Sherita Allan M.D. on 03/07/2024 at 14:24 Approved by: Sherita Allan M.D. on 03/07/2024 at 14:25
[2024-03-07] MEDS: LIDOCAINE 1% 20 ML INJ (14:27)
[2024-03-07 15:09] VITALS: BP 182/77; PULSE 58; RESP 18; O2SAT 95
== END 2024-03-07 15:10 | disposition home or self-care (01) ==
PROVIDERS: Emergency Provider Physician Assistant Medical; PCP Family Medicine
DX: S81.011A Laceration without foreign body, right knee, initial encounter (principal); W01.0XXA Fall on same level from slipping, tripping and stumbling without subsequent striking against object, initial encounter
CPT/HCPCS: 12004; 73562; 99282; 99283

== ENCOUNTER → 2024-05-29 10:20 | Outpatient (CLI) | payer MEDICARE, OTHER, SELFPAY ==
[2024-05-29 10:57] LABS: Add Manual Diff / Slide Review NO; Basophils Absolute Auto 100 /uL (0-100); Basophils Percent Auto 1.1 % (0-2); Eosinophils Absolute Auto 800 /uL (0-450); Eosinophils Percent Auto 10.1 % (2-4); Hematocrit 33.3 % (36-46); Hemoglobin 11.3 g/dL (12.0-16.0); Lymphocytes Absolute Auto 1500 /uL (1100-4500); Lymphocytes Percent Auto 20.4 % (25-40); Mean Corpuscular HGB Conc 33.9 % (30-36); Mean Corpuscular Hemoglobin 36.6 PG (26-34); Monocytes Absolute Auto 600 /uL (0-900); Monocytes Percent Auto 8.1 % (3-14); Neutrophils Absolute Auto 4600 /uL (1500-7000); Neutrophils Percent Auto 60.3 % (50-75); Platelet Count 234 X10^3/uL (150-400); Red Blood Cell Count 3.08 X10^6/uL (4.0-5.2); Red Cell Distribution Width 15.9 % (11.6-14.8); White Blood Cell Count 7.6 X10^3/uL (4.5-11.0)
[2024-05-29 11:26] LABS: Alanine Aminotransferase 19 IU/L (<35); Albumin 4.1 g/dL (3.5-5.0); Albumin Globulin Ratio 1.6 (1.0-2.8); Alkaline Phosphatase 86 U/L (38-126); Aspartate Aminotransferase 34 IU/L (14-36); BUN Creatinine Ratio 17.4 (6-22); Bilirubin Total 0.6 mg/dL (0.2-1.3); Blood Urea Nitrogen 32 mg/dL (7-17); Calcium 9.5 mg/dL (8.4-10.2); Carbon Dioxide 25 mmol/L (22-32); Chloride 103 mmol/L (98-107); Estimated Glomerular Filt Rate 29 mL/min (>60); Globulin 2.5 g/dL (1.7-4.1); Glucose 116 mg/dL (80-110); HEMOLYSIS < 15 (0-50); Potassium 4.7 mmol/L (3.4-5.1); Sodium 136 mmol/L (137-145); Total Protein 6.6 g/dL (6.3-8.2)
[2024-05-29 12:04] LABS: TSH w/ Reflex to FT4 1.73 uIU/mL (0.47-4.68)
== END ==
LOC: LAB 10:23
PROVIDERS: PCP Family Medicine; Referring Provider Family Medicine; Visit Provider Family Medicine
DX: E11.9 Type 2 diabetes mellitus without complications (principal); I21.9 Acute myocardial infarction, unspecified
CPT/HCPCS: 36415; 80053; 83036; 84443; 85025

== ENCOUNTER → 2024-06-03 13:21 | Outpatient (CLI) | payer MEDICARE, OTHER, SELFPAY ==
[2024-06-03 14:53] LABS: Iron 83 ug/dL (37-170)
[2024-06-03 15:27] LABS: Ferritin 56 ng/mL (11-264)
[2024-06-03 15:59] LABS: Folate 3.5 ng/mL (2.76-20.0); Vitamin B12 < 159 pg/mL (239-931)
== END ==
PROVIDERS: PCP Family Medicine; Referring Provider Family Medicine; Visit Provider Family Medicine
DX: E11.9 Type 2 diabetes mellitus without complications (principal); Z95.5 Presence of coronary angioplasty implant and graft; I21.9 Acute myocardial infarction, unspecified; E78.2 Mixed hyperlipidemia; M51.37 Other intervertebral disc degeneration, lumbosacral region; I10 Essential (primary) hypertension; M51.36 Other intervertebral disc degeneration, lumbar region
CPT/HCPCS: 36415; 82607; 82728; 82746; 83540

== ENCOUNTER → 2024-07-19 09:16 | Outpatient (CLI) | payer MEDICARE, OTHER, SELFPAY ==
--- NOTE | 2024-07-19 09:17 | DI.RAD.S_ITS ---
PROCEDURE: XR KNEE RT 3V INDICATIONS: Falls x 3 pain medial side; hx B of partial knee replacement TECHNIQUE: 3 views of the knee were acquired. COMPARISON: [facility], , XR KNEE RT 3V, 03/07/2024, 13:48. FINDINGS: Bones: No fractures or dislocations. No suspicious bony lesions. Lateral tibiofemoral arthroplasty, without hardware complication. Soft tissues: No joint effusion. No suspicious soft tissue calcifications. IMPRESSION: Lateral tibial femoral arthroplasty, without hardware complication. No displaced fracture or significant joint effusion. Dictated by: Tobias Pedraza M.D. on 07/22/2024 at 11:50 Approved by: Tobias Pedraza M.D. on 07/22/2024 at 11:51
--- NOTE | 2024-07-19 09:17 | DI.RAD.S_ITS ---
PROCEDURE: XR KNEE LT 3V INDICATIONS: Falls x 3 pain medial side; hx B of partial knee replacement TECHNIQUE: 3 views of the knee were acquired. COMPARISON: [facility], CR, XR KNEE RT 3V, 03/07/2024, 13:48. FINDINGS: Bones: No fractures or dislocations. No suspicious bony lesions. Lateral tibiofemoral arthroplasty without hardware complication. Soft tissues: No joint effusion. No suspicious soft tissue calcifications. IMPRESSION: No displaced fracture or significant joint effusion. Lateral tibiofemoral arthroplasty without hardware complication. Dictated by: Tobias Pedraza M.D. on 07/22/2024 at 11:51 Approved by: Tobias Pedraza M.D. on 07/22/2024 at 12:41
[2024-07-19 10:39] LABS: Hemoglobin 11.5 g/dL (12.0-16.0)
[2024-07-19 11:08] LABS: Microalbumin Urine Random 12.3 mg/dL (0-1.6)
[2024-07-19 12:01] LABS: Folate 19.1 ng/mL (2.76-20.0); Vitamin B12 376 pg/mL (239-931)
== END ==
PROVIDERS: PCP Family Medicine; Referring Provider Physician Assistant; Visit Provider Physician Assistant
DX: E56.9 Vitamin deficiency, unspecified (principal); E53.8 Deficiency of other specified B group vitamins; E11.9 Type 2 diabetes mellitus without complications; I21.9 Acute myocardial infarction, unspecified; M25.561 Pain in right knee; M25.562 Pain in left knee; Z96.653 Presence of artificial knee joint, bilateral
CPT/HCPCS: 36415; 73562; 82043; 82570; 82607; 82746; 85014; 85018

== ENCOUNTER → 2024-08-26 11:04 | Outpatient (CLI) | payer MEDICARE, OTHER, SELFPAY ==
[2024-08-26 12:07] LABS: Add Manual Diff / Slide Review NO; Basophils Absolute Auto 0 /uL (0-100); Basophils Percent Auto 0.6 % (0-2); Eosinophils Absolute Auto 300 /uL (0-450); Eosinophils Percent Auto 3.5 % (2-4); Hematocrit 36.7 % (36-46); Hemoglobin 12.3 g/dL (12.0-16.0); Lymphocytes Absolute Auto 1900 /uL (1100-4500); Lymphocytes Percent Auto 25.7 % (25-40); Mean Corpuscular HGB Conc 33.6 % (30-36); Mean Corpuscular Hemoglobin 33.2 PG (26-34); Mean Corpuscular Volume 98.9 fL (80-100); Monocytes Absolute Auto 600 /uL (0-900); Monocytes Percent Auto 7.6 % (3-14); Neutrophils Absolute Auto 4500 /uL (1500-7000); Neutrophils Percent Auto 62.6 % (50-75); Platelet Count 242 X10^3/uL (150-400); Red Blood Cell Count 3.71 X10^6/uL (4.0-5.2); Red Cell Distribution Width 13.3 % (11.6-14.8); White Blood Cell Count 7.3 X10^3/uL (4.5-11.0)
[2024-08-26 12:26] LABS: BUN Creatinine Ratio 14.7 (6-22); Blood Urea Nitrogen 19 mg/dL (7-17); Calcium 9.6 mg/dL (8.4-10.2); Carbon Dioxide 30 mmol/L (22-32); Chloride 99 mmol/L (98-107); Estimated Glomerular Filt Rate 44 mL/min (>60); Glucose 121 mg/dL (80-110); HEMOLYSIS < 15 (0-50); Potassium 4.4 mmol/L (3.4-5.1); Sodium 133 mmol/L (137-145)
[2024-08-26 12:31] LABS: Hemoglobin A1C% w Est Avg Glu 6.2 % (4.0-6.0)
== END ==
PROVIDERS: PCP Family Medicine; Referring Provider Family Medicine; Visit Provider Family Medicine
DX: N18.30 Chronic kidney disease, stage 3 unspecified (principal); N18.32 Chronic kidney disease, stage 3b; D63.1 Anemia in chronic kidney disease
CPT/HCPCS: 36415; 80048; 83036; 85025

== ENCOUNTER → 2024-09-15 10:16 | Outpatient (CLI) | payer MEDICARE, OTHER, SELFPAY ==
--- NOTE | 2024-09-15 10:18 | DI.NM.S_ITS ---
PROCEDURE: NM VOLODYMYR PERF SPECT R&S PHARM Rest and pharmacological stress myocardial perfusion SPECT with gated imaging and ejection fraction RADIOPHARMACEUTICAL: 11.6 mCi Tc-99m tetrafosmin IV at rest and 25.6 mCi Tc-99m tetrafosmin IV at peak effect of pharmacological stress. A [id number] was performed. INDICATIONS: Coronary artery disease, acute myocardial infarction TECHNIQUE: Radiopharmaceutical was injected at peak stress test, and also at rest. SPECT images were obtained. SPECT myocardial perfusion images were displayed in short axis, horizontal long axis, and vertical long axis views. Gated images were reviewed using [employer] software. COMPARISON: None. CARDIAC STRESS: An exercise stress test was performed using the Orion protocol 4:00, maximum heart rate 117 bpm (79% peak predicted), maximum blood pressure 164/90, 4.6 METS, LILI +27%. While the patient did not report exercise-induced chest pain the test was switched to a pharmacologic study due to knee pain and inability to keep up with the treadmill. A pharmacologic stress test was performed under the supervision of an attending staff, using an infusion of regadenoson. Hemodynamic data: There is normal blood pressure and heart rate response to pharmacologic stress. Symptoms: The patient denied anginal chest pain. EKG: No diagnostic changes of ischemia; no ectopy. FINDINGS: Raw data: There is good myocardial uptake of radiotracer. No significant motion artifacts. Left ventricle function: Gated images demonstrate normal left ventricular wall thickening. No segmental wall motion abnormalities. No transient ischemic dilation; TID is 0.98 (normal less than 1.3). Left ventricle resting end diastolic volume is 101 mL. Left ventricle stress ejection fraction is 73%; normal range is above 45%. Myocardial perfusion: There is normal distribution of activity in the right and left ventricular myocardium. No fixed or reversible perfusion defects. IMPRESSION: Low risk pharmacologic stress study for ischemia. Exercise stress testing switched to pharmacologic due to knee pain and inability to keep up with the treadmill. The patient demonstrated reduced exercise capacity with this. No evidence of pharmacologic induced ischemia or scar. Normal LV size and function. Dictated by: Saadia Randall D.O. on 09/15/2024 at 16:50 Approved by: Saadia Randall D.O. on 09/15/2024 at 16:56
== END ==
PROVIDERS: PCP Family Medicine; Referring Provider Family Medicine; Visit Provider Family Medicine
DX: I21.9 Acute myocardial infarction, unspecified (principal); I25.10 Atherosclerotic heart disease of native coronary artery without angina pectoris
CPT/HCPCS: 78452; 93017; A9502; J2785

== ENCOUNTER 2024-11-10 11:30 | Emergency (ER) | payer MEDICARE, SELFPAY ==
[2024-11-10 11:51] VITALS: BP 119/56; PULSE 75; RESP 16; TEMP 35.9; O2SAT 97; BMI 28.4
--- NOTE | 2024-11-10 11:56 | DI.RAD.S_ITS ---
PROCEDURE: XR WRIST LT MIN 3V INDICATIONS: wrist pain TECHNIQUE: 3 views of the wrist were acquired. COMPARISON: None. FINDINGS: Bones: No fractures or dislocations. Osteoarthritic changes are noted throughout wrist joints. No suspicious bony lesions. Soft tissues: No suspicious soft tissue calcifications. IMPRESSION: No acute left wrist fracture or dislocation. Left wrist joint osteoarthritis. Dictated by: Aleksander Harmon M.D. on 11/10/2024 at 12:52 Approved by: Aleksander Harmon M.D. on 11/10/2024 at 12:53
--- NOTE | 2024-11-10 13:15 | ED.EXTPRO ---
HPI - Extremity Problem <Sharmin Sahu PA-C - Last Filed: 11/10/24 13:48> General Chief complaint: Extremity Problem,Nontraumatic Stated complaint: Hand px Time Seen by Provider: 11/10/24 12:53 History of Present Illness HPI Narrative: 74-year-old female right-handed dominant presents with left wrist and thumb pain. She states it occurred while sleeping she moved suddenly as she was startled and then had immediate pain. She denied striking any objects however. She is denying any numbness or tingling or loss of sensation, she does have a history of carpal tunnel surgery on this side about 3-4 years ago at [facility]. She did take some ibuprofen but tries to limit that as she does take aspirin regularly. She also tried a tramadol, no ice or heat tried yet all other systems reviewed and are negative. Related Data Home Medications Medication Instructions Recorded Confirmed magnesium oxide 400 mg (241.3 mg 400 mg PO DAILY 08/12/18 08/28/24 magnesium) tablet Ca afub-vkjtykxyt-zuzk thistle 1 cap PO BID 04/12/23 08/28/24 capsule (Liver-Kidney Cleanser capsule) cholecalciferol (vitamin D3) 50 50 mcg PO DAILY 04/12/23 08/28/24 mcg (2,000 unit) capsule cinnamon bark 500 mg capsule 500 mg PO BID 04/12/23 08/28/24 (Cinnamon) Previous Rx's Medication Instructions Recorded aspirin 81 mg tablet,delayed 81 mg PO DAILY #90 tabs 09/13/22 release Contour Next test strips #100 ea 09/06/23 clopidogrel 75 mg tablet 75 mg PO DAILY #90 tabs 04/15/24 gabapentin 300 mg capsule 300 mg PO BEDTIME #90 caps 04/15/24 losartan 50 mg tablet 50 mg PO DAILY #90 tabs 04/15/24 metformin 1,000 mg tablet 1,000 mg PO BID #180 tabs 04/15/24 metoprolol succinate 25 mg 25 mg PO BID #180 tabs 04/15/24 tablet,extended release 24 hr omeprazole 20 mg capsule,delayed 20 mg PO DAILY #90 caps 04/15/24 release rosuvastatin 20 mg tablet 20 mg PO DAILY #90 tabs 04/15/24 sertraline 50 mg tablet (Zoloft) 50 mg PO DAILY #90 tabs 04/15/24 triamcinolone acetonide 0.1 % See Rx Instructions topical BID 06/26/24 topical cream #15 grams tramadol 50 mg tablet 50 mg PO BID PRN pain #30 tabs 08/13/24 semaglutide 0.25 mg or 0.5 mg (2 0.5 mg (0.736 mL) SUBCUT QWEEK #3 10/20/24 mg/3 mL) subcutaneous pen injector mL Allergies Allergy/AdvReac Type Severity Reaction Status Date / Time hexachlorophene Allergy Mild SWELLING Verified 08/28/24 09:25 [HEXACHLOROPHENE] AT SITE Iodinated Contrast Media Allergy Verified 08/28/24 09:25 codeine [CODEINE] AdvReac Mild N/V Verified 08/28/24 09:25 hydrochlorothiazide AdvReac Mild CRAMPS Verified 08/28/24 09:25 [HYDROCHLOROTHIAZIDE] Review of Systems <Sharmin Sahu PA-C - Last Filed: 11/10/24 13:48> Review of Systems Narrative: All other systems reviewed and are negative. Patient History <Sharmin Sahu PA-C - Last Filed: 11/10/24 13:48> Medical History (Updated 11/10/24 @ 13:46 by Sharmin Sahu PA-C) GERD (gastroesophageal reflux disease) Diabetes mellitus Hypertension Mixed hyperlipidemia (06/11/17) Surgical History Anesthesia History of knee replacement Status post hysterectomy Family History Father Stroke Mother Lung cancer Social History marital status: household members: spouse Smoking Status: Never smoker alcohol intake: current substance use type: does not use Smoking Status: Never smoker alcohol intake frequency: 0-2 drinks per day Exam <Sharmin Sahu PA-C - Last Filed: 11/10/24 13:48> Initial Vital Signs Initial Vital Signs: Vital Signs Temperature 96.7 F L 11/10/24 11:51 Pulse Rate 75 11/10/24 11:51 Respiratory Rate 16 11/10/24 11:51 Blood Pressure 119/56 L 11/10/24 11:51 Pulse Oximetry 97 11/10/24 11:51 Oxygen Delivery Method Room Air 11/10/24 11:51 Vital signs reviewed and are normal. Const Other: Smiling seated, no distress. Currently wearing a Velcro wrist splint on the left side. Resp Auscultation: clear to auscultation bilaterally Cardio Rate: regular rate Rhythm: regular rhythm Skin Other: Normal color, turgor, temperature of the left arm wrist hand and fingers. Extrem Left upper extremity: normal to inspection, normal capillary refill, no joint enlargement and wrist (Focal tenderness along the dorsal wrist at the 1st carpometacarpal joint) Details: tenderness, swelling, abnormal ROM, normal vascular exam, radial pulse present and ulnar pulse present; no ecchymosis, no crepitus and no deformity Other: Active range of motion of the left thumb is limited due to her pain. She demonstrates flexion of the interphalangeal joint, MCP joint is without swelling, pinch mechanism is intact but it causes her pain at the MCP and CMC joint. Positive Austen's test. Mild tenderness along the abductor pollicis brevis and longus tendons on the dorsal/radial forearm. <Jamie Muse MD - Last Filed: 11/10/24 18:49> Initial Vital Signs Initial Vital Signs: Vital Signs Temperature 96.7 F L 11/10/24 11:51 Pulse Rate 75 11/10/24 11:51 Respiratory Rate 16 11/10/24 11:51 Blood Pressure 119/56 L 11/10/24 11:51 Pulse Oximetry 97 11/10/24 11:51 Oxygen Delivery Method Room Air 11/10/24 11:51 Course <Sharmin Sahu PA-C - Last Filed: 11/10/24 13:48> Course Course Narrative: Reexamined after application of the thumb spica splint she feels much more comfortable with the immobilization involving the thumb. Distal neurovascular is grossly intact. Orders Ordered: ED Orders 11/10/24 11:56 XR wrist LT min 3V Stat Vital Signs Vital signs: Vital Signs - 8 hr 11/10/24 11:51 Temperature 96.7 F L Pulse Rate 75 Respiratory Rate 16 Blood Pressure 119/56 L Pulse Oximetry 97 Oxygen Delivery Method Room Air <Jamie Muse MD - Last Filed: 11/10/24 18:49> Orders Ordered: ED Orders 11/10/24 11:56 XR wrist LT min 3V Stat Vital Signs Vital signs: Vital Signs - 8 hr 11/10/24 11:51 Temperature 96.7 F L Pulse Rate 75 Respiratory Rate 16 Blood Pressure 119/56 L Pulse Oximetry 97 Oxygen Delivery Method Room Air MDM - Extremity (Nontraumatic) <Sharmin Sahu PA-C - Last Filed: 11/10/24 13:48> Imaging Data Extremity x-ray #1: My Impression: No acute bony abnormality. Radiologist's Impression: PROCEDURE: XR WRIST LT MIN 3V INDICATIONS: wrist pain TECHNIQUE: 3 views of the wrist were acquired. COMPARISON: None. FINDINGS: Bones: No fractures or dislocations. Osteoarthritic changes are noted throughout wrist joints. No suspicious bony lesions. Soft tissues: No suspicious soft tissue calcifications. IMPRESSION: No acute left wrist fracture or dislocation. Left wrist joint osteoarthritis. Dictated by: Aleksander Harmon M.D. on 11/10/2024 at 12:52 Approved by: Aleksander Harmon M.D. on 11/10/2024 at 12:53 [facility] Narrative Medical decision making narrative: No clinical findings to suggest cellulitis, infection, x-rays were normal no bony abnormalities. I believe she has tendinitis involving the thumb and wrist. I have exchanged her wrist splint for a thumb spica Velcro wrist splint and I have asked her to follow up with Orthopedics. She is already established at [facility] orth[facility] having seen Dr. Garvey in the past. I have asked her to contact their their number and schedule a follow up appointment. She may benefit from physical therapy, possibly a steroid injection, we did discuss contrast bath, the use of ice submersion 30-45 seconds at a time and then alternating with heat, wear the brace at all times, she may take Tylenol for pain she already has tramadol at home. Red flag warning signs are reviewed in great detail. Seek medical attention if you have any worsening pain, swelling, any redness or skin changes, develop any fever or any other worrisome symptoms. Discharge Plan Departure Patient Disposition: Home Clinical Impression: Tendinitis, de Quervain's Instructions: DI for De Quervain's Tenosynovitis Activity Restrictions/Additional Instructions: I believe you injured the tendon in the wrist and thumb on your left side. The brace that we applied should help better immobilize this joint. We discussed contrast bath, please do fill a bowl of water with ice and water and submerge the entire wrist and hand for about 30-45 seconds, you may then alternate with heat and do this several times for about 5-10 minutes. Please contact your orthopedist for follow up. Your x-rays today were negative for any bony abnormalities. Please continue with acetaminophen, your tramadol, I think the ice is going to give you the best relief however. And of course immobilizing it. Please do seek medical attention if you develop any worrisome symptoms, any worsening pain, swelling, any numbness or tingling, do not hesitate to return to the emergency department. The phone number for [facility]: [phone], Prescriptions: No Action Liver-Kidney Cleanser Capsule 1 cap PO BID cholecalciferol (vitamin D3) 50 mcg (2,000 unit) capsule 50 mcg PO DAILY aspirin 81 mg tablet,delayed release (DR/EC) 81 mg PO DAILY Qty: 90 3RF (DME) Contour Next test strips Qty: 100 11RF Rx Instructions: As directed up to 4 times daily for control of blood sugar. Testing increased d/t hypoglycemia gabapentin 300 mg capsule 300 mg PO BEDTIME Qty: 90 3RF losartan 50 mg tablet 50 mg PO DAILY Qty: 90 3RF metformin 1,000 mg tablet 1,000 mg PO BID Qty: 180 3RF omeprazole 20 mg capsule,delayed release(DR/EC) 20 mg PO DAILY Qty: 90 3RF metoprolol succinate 25 mg tablet extended release 24 hr 25 mg PO BID Qty: 180 3RF clopidogrel 75 mg tablet 75 mg PO DAILY Qty: 90 3RF sertraline [Zoloft] 50 mg tablet 50 mg PO DAILY Qty: 90 3RF rosuvastatin 20 mg tablet 20 mg PO DAILY Qty: 90 3RF triamcinolone acetonide 0.1 % cream See Rx Instructions topical BID Qty: 15 0RF Rx Instructions: 1 mg topically bid TOP BID; tramadol 50 mg tablet 50 mg PO BID PRN (Reason: pain) Qty: 30 0RF semaglutide 0.25 mg or 0.5 mg (2 mg/3 mL) pen injector 0.5 mg SUBCUT QWEEK Qty: 3 3RF Rx Instructions: inject 0.5mg once weekly-diagnosis of diabetes E11.9 magnesium oxide 400 mg tablet 400 mg PO DAILY cinnamon bark [Cinnamon] 500 mg capsule 500 mg PO BID Referrals: Nahid Tripp MD [Primary Care Provider] - Julio Cesar Garvey MD [Physician] - Stand Alone Forms: Patient Portal/API/Survey ED Sign-out <Jamie Muse MD - Last Filed: 11/10/24 18:49> Cosign ED Attending Cosignature Attestation: I was immediately available in the department for consultation. This documentation has been reviewed and I agree with assessment and plan. Supervised by Jamie Muse MD
== END 2024-11-10 13:58 | disposition home or self-care (01) ==
PROVIDERS: Emergency Provider Physician Assistant Medical; PCP Family Medicine
DX: M65.4 Radial styloid tenosynovitis [de Quervain] (principal)
CPT/HCPCS: 29125; 29280; 73110; 99283

== ENCOUNTER → 2025-05-13 10:10 | Outpatient (CLI) | payer MEDICARE, OTHER, SELFPAY ==
[2025-05-13 10:51] LABS: Add Manual Diff / Slide Review NO; Basophils Absolute Auto 0 /uL (0-100); Basophils Percent Auto 0.7 % (0-2); Eosinophils Absolute Auto 100 /uL (0-450); Eosinophils Percent Auto 1.5 % (2-4); Hematocrit 34.9 % (36-46); Hemoglobin 11.8 g/dL (12.0-16.0); Lymphocytes Absolute Auto 1700 /uL (1100-4500); Lymphocytes Percent Auto 26.9 % (25-40); Mean Corpuscular HGB Conc 33.7 % (30-36); Mean Corpuscular Hemoglobin 32.5 PG (26-34); Mean Corpuscular Volume 96.6 fL (80-100); Monocytes Absolute Auto 400 /uL (0-900); Monocytes Percent Auto 6.9 % (3-14); Neutrophils Absolute Auto 4100 /uL (1500-7000); Platelet Count 221 X10^3/uL (150-400); Red Blood Cell Count 3.62 X10^6/uL (4.0-5.2); Red Cell Distribution Width 13.8 % (11.6-14.8); White Blood Cell Count 6.4 X10^3/uL (4.5-11.0)
[2025-05-13 11:16] LABS: BUN Creatinine Ratio 18.4 (6-22); Blood Urea Nitrogen 23 mg/dL (7-17); Calcium 9.8 mg/dL (8.4-10.2); Carbon Dioxide 27 mmol/L (22-32); Chloride 101 mmol/L (98-107); Cholesterol 171 mg/dL (140-199); Estimated Glomerular Filt Rate 46 mL/min (>60); Glucose 97 mg/dL (70-99); HDL Cholesterol 107 mg/dL (40-60); HEMOLYSIS < 15 (0-50); LDL Cholesterol Calculated 39 mg/dL (<100); Potassium 4.6 mmol/L (3.4-5.1); Sodium 136 mmol/L (137-145); Triglycerides 124 mg/dL (35-150)
[2025-05-13 11:26] LABS: Hemoglobin A1C% w Est Avg Glu 5.4 % (4.0-6.0)
[2025-05-13 11:49] LABS: TSH w/ Reflex to FT4 3.08 uIU/mL (0.47-4.68)
== END ==
PROVIDERS: PCP Family Medicine; Referring Provider Family Medicine; Visit Provider Family Medicine
DX: N18.32 Chronic kidney disease, stage 3b (principal); I21.9 Acute myocardial infarction, unspecified; E11.9 Type 2 diabetes mellitus without complications; N18.30 Chronic kidney disease, stage 3 unspecified; D63.1 Anemia in chronic kidney disease; E78.2 Mixed hyperlipidemia
CPT/HCPCS: 36415; 80048; 80061; 83036; 84443; 85025